=== PATIENT | male | born 1940 | race Caucasian/White ===

== ENCOUNTER → 2017-08-03 14:03 | Outpatient (POV) | payer MEDICARE, SELFPAY | PROVIDERS: Family Provider Internal Medicine; PCP Internal Medicine; Referring Provider Internal Medicine Clinical Cardiac Electrophysiology; Visit Provider Dermatology | DX: I48.1 Persistent atrial fibrillation (principal) | CPT/HCPCS: 93005 ==

== ENCOUNTER → 2017-10-27 14:01 | Outpatient (CLI) | payer MEDICARE, SELFPAY ==
--- NOTE | 2017-10-27 14:13 | CA_ITS ---
PROCEDURE: 2-D M-mode and color Doppler study INDICATIONS FOR THE TEST: Chest pain COPD Heart Murmur Tobacco Smoking Palpitations Fatigue Syncope Edema Hypertension Diabetes Mellitus+ Rheumatic Fever SOB DAVE Obesity Hyperlipidemia+ Family History HD Additional History ABLATION JUN 2017 PATIENT INFORMATION HEIGHT:78 WEIGHT:195 GENDER: Male B/P:120/70 2-D/M-MODE INTERPRETATION: 2-D MEASUREMENTS OBSERVED VALUES IN CMS Right Ventricular Dimension (RVDd) 2.9 Interventricular Septum (Thickness)(IVsd) 1.0 Left Ventricular Internal Dimensions(LVIDd) 5.6 Left Ventricular Posterior Wall (Thickness)(LVPWd) 1.1 Aortic Root 3.3 Aortic Cusp Separation 1.4 Left Atrial Dimensions (LAD) 4.2 2D 1. Left atrium is qualitatively moderately enlarged, left ventricle is normal size, visually estimated ejection fraction 50% no signal wall motion abnormality. 2. The right atrium is moderately enlarged, right ventricle is mildly dilated with normal contractility. 3. The aortic valve is minimally thickened and fibrosed. 4. The mitral and tricuspid valvular minimally thickened. 5. The pulmonic valve is poorly visualized 6. No significant pericardial effusion noted. DOPPLER INTERROGATION: Doppler interrogation of the aortic, mitral and tricuspid valvular presence of mild mitral and tricuspid regurgitation, calculated right ventricular systolic pressure is 47 mmHg consistent with moderate pulmonary hypertension, diastolic parameters are inconclusive. CONCLUSION: 1. Biatrial enlargement, normal left ventricular size, visually estimated ejection fraction 50% with no obvious regional wall motion abnormality, diastolic parameters are inconclusive. 2. Mildly enlarged right ventricle with normal contractility. 3. Mild mitral and tricuspid regurgitation, calculated right ventricular systolic pressure is 47 mmHg consistent with moderate pulmonary hypertension 4. No significant pericardial effusion noted.
== END ==
PROVIDERS: Family Provider Internal Medicine; PCP Internal Medicine; Visit Provider Internal Medicine Clinical Cardiac Electrophysiology
DX: I48.1 Persistent atrial fibrillation (principal); I42.9 Cardiomyopathy, unspecified
CPT/HCPCS: 93306

== ENCOUNTER → 2018-01-04 13:03 | Outpatient (POV) | payer MEDICARE, SELFPAY | PROVIDERS: Family Provider Internal Medicine; PCP Internal Medicine; Visit Provider Dermatology | DX: Z00.00 Encounter for general adult medical examination without abnormal findings (principal) ==

== ENCOUNTER → 2018-08-21 08:04 | Outpatient (POV) | payer MEDICARE, SELFPAY | PROVIDERS: Visit Provider Dermatology | DX: Z00.00 Encounter for general adult medical examination without abnormal findings (principal) ==

== ENCOUNTER → 2019-05-08 14:28 | Outpatient (CLI) | payer MEDICARE, SELFPAY ==
--- NOTE | 2019-05-08 14:35 | CT_ITS ---
PROCEDURE: CT ABDOMEN PELVIS WO CON CLINICAL HISTORY: RUQ PAIN,ABD PAIN,H/O MELANOMA Right flank pain COMPARISON: ABDPELW/O CT ABD PELVIS W/O CONTRAST from 04/02/2013 TECHNIQUE: Axial images obtained with sagittal and coronal reformats. All CT scans at the facility use one or more dose reduction, viz: automated exposure control, ma/kV adjustment per patient size (including targeted exams where dose is matched to indication, i.e. head), or iterative reconstruction technique. FINDINGS: Calcified granuloma is present in the right lung base. Bowel interposition is noted anterior to the right lobe of the liver. There is a small hiatal hernia. The liver, spleen, adrenal glands, and pancreas have an unremarkable appearance. There is an unusual lateral extension of the caudate lobe of the liver has a normal variant. No renal or ureteral calculi. No hydronephrosis. There is a 4.5 cm cyst along the superior pole of the right kidney. There is mild aneurysmal dilatation of the infrarenal abdominal aorta at 2.8 cm previously measuring 2.6 cm. There is a small umbilical hernia containing fat. The ascending colon is in the normal position. The cecum however is flipped and is in the right upper quadrant anterior to the right lobe of the liver. The ileocecal valve is also present in this region. No obvious inflammatory changes. No evidence of intestinal obstruction. There is diverticulosis of the sigmoid colon but no evidence of diverticulitis. Prostate is slightly enlarged at 5.5 cm. No acute bony anomalies are evident. IMPRESSION: 1. No acute abdominal or pelvic findings 2. No renal or ureteral calculi. There is a 4.5 cm right renal cyst 3. Mild dilatation of the infrarenal abdominal aorta at 2.8 cm 4. There is mild positioning of the cecum which is located in the right upper quadrant. No focal inflammatory change of struck [place] or other significant anomalies are evident. 5. Enlarged prostate Dictated by: Oh Parker MD 05/08/2019 15:48 Electronically signed by Oh Parker MD in [place] 05/08/2019 15:48
--- NOTE | 2019-05-08 14:38 | XR_ITS ---
PROCEDURE: XR CHEST 2V CLINICAL HISTORY: RT LATERAL LOWER CHEST PAIN COMPARISON: [facility] CT CHEST W/O CONTRAST from 04/02/2013 CXR CHEST(2 VIEWS-NOT PORTABLE) from 11/11/2016 CXR CHEST(2 VIEWS-NOT PORTABLE) from 12/12/2016 CXR CHEST(2 VIEWS-NOT PORTABLE) from 01/20/2017 FINDINGS: The cardiomediastinal silhouette and pulmonary vascularity are within normal limits. There is evidence of old granulomatous disease. No lobar consolidation or collapse. There is a calcified granuloma in the right lower lobe. Degenerative changes of the thoracic spine IMPRESSION: No acute findings. Dictated by: Oh Parker MD 05/08/2019 15:39 Electronically signed by Oh Parker MD in [facility] 05/08/2019 15:39
== END ==
PROVIDERS: PCP Internal Medicine; Visit Provider Internal Medicine
DX: R07.89 Other chest pain (principal); R10.11 Right upper quadrant pain; R10.9 Unspecified abdominal pain; Z85.820 Personal history of malignant melanoma of skin
CPT/HCPCS: 71046; 74176

== ENCOUNTER → 2019-07-09 09:56 | Outpatient (POV) | payer MEDICARE, SELFPAY | PROVIDERS: Visit Provider Dermatology | DX: Z00.00 Encounter for general adult medical examination without abnormal findings (principal) ==

== ENCOUNTER → 2019-12-04 14:50 | Outpatient (CLI) | payer MEDICARE, SELFPAY ==
--- NOTE | 2019-12-04 15:06 | ECG_ITS ---
APPROVED REPORT Exam: Resting ECG HR:140 bpm ECG Measurements Heart Rate 140 AXES QRSd 122 QRS 42 QT 324 T 19 QTc 494 <Conclusion> Atrial fibrillation with rapid ventricular response with premature ventricular or aberrantly conducted complexes Right bundle branch block NDST-T Changes Abnormal ECG Electronically signed by : Daren Bloom, 12/04/2019 16:17:41
== END ==
PROVIDERS: PCP Internal Medicine; Visit Provider Internal Medicine
DX: R42 Dizziness and giddiness (principal); I49.9 Cardiac arrhythmia, unspecified
CPT/HCPCS: 93005

== ENCOUNTER → 2020-04-07 13:03 | Outpatient (POV) | payer MEDICARE, SELFPAY | PROVIDERS: Visit Provider Dermatology | DX: Z00.00 Encounter for general adult medical examination without abnormal findings (principal) ==

== ENCOUNTER → 2020-04-21 14:25 | Outpatient (POV) | payer MEDICARE, SELFPAY | PROVIDERS: Visit Provider Dermatology | DX: Z00.00 Encounter for general adult medical examination without abnormal findings (principal) ==

== ENCOUNTER → 2020-05-04 10:56 | Outpatient (CLI) | payer MEDICARE, SELFPAY ==
--- NOTE | 2020-05-04 11:15 | ECG_ITS ---
APPROVED REPORT Exam: Resting ECG HR:127 bpm ECG Measurements Heart Rate 127 AXES QRSd 132 QRS 43 QT 388 T -31 QTc 563 Conclusion Atrial flutter with variable AV block with premature ventricular or aberrantly conducted complexes Right bundle branch block T wave abnormality, consider inferolateral ischemia Abnormal ECG Electronically signed by : Richie Bianchi, 05/05/2020 06:40:53
== END ==
PROVIDERS: PCP Internal Medicine; Visit Provider Physician Assistant
DX: I48.11 Longstanding persistent atrial fibrillation (principal)
CPT/HCPCS: 93005

== ENCOUNTER → 2020-06-11 11:09 | Outpatient (CLI) | payer MEDICARE, SELFPAY ==
--- NOTE | 2020-06-11 11:29 | ECG_ITS ---
APPROVED REPORT Exam: Resting ECG HR:80 bpm ECG Measurements Heart Rate 80 AXES AK 132 P 68 QRSd 122 QRS 28 QT 420 T -25 QTc 484 Conclusion Normal sinus rhythm Right bundle branch block T wave abnormality, consider inferolateral ischemia Abnormal ECG Electronically signed by : Richie Bianchi, 06/11/2020 17:41:19
== END ==
PROVIDERS: PCP Internal Medicine; Visit Provider Physician Assistant
DX: R94.31 Abnormal electrocardiogram [ECG] [EKG] (principal)
CPT/HCPCS: 93005

== ENCOUNTER 2020-09-13 14:18 | Emergency (ER) | payer MEDICARE, SELFPAY ==
[2020-09-13 14:27] VITALS: BP 138/74; PULSE 84; RESP 16; TEMP 36.8; O2SAT 98; BMI 22.5
--- NOTE | 2020-09-13 14:49 | XR_ITS ---
PROCEDURE: XR HIP RT 2-3V W/PELVIS CLINICAL INDICATION: fall COMPARISON: CT CT HIP RT WO CON from 09/13/2020 FINDINGS: Head and neck appear intact. There is a questionable discontinuity in the of the acetabulum medially. There is generalized osteopenia but a nondisplaced fracture is a possibility. The pubic bones appear intact. The left hip is intact. The SI joints and symphysis pubis appear normal. IMPRESSION: Generalized osteopenia questionable fracture versus focal osteopenia roof of the right acetabulum Dictated by: Dr. Jacek Huizar MD 09/13/2020 16:29 Dr. Jacek Huizar MD in [place] 09/13/2020 16:29
--- NOTE | 2020-09-13 14:49 | XR_ITS ---
PROCEDURE: XR ELBOW RT MIN 3V CLINICAL INDICATION: fall COMPARISON: No exams were available for comparison FINDINGS: No fracture or dislocation. No lytic or blastic change. There is mild generalized osteopenia.. The joint spaces are well-preserved. No significant degenerative/arthritic changes. No erosive changes evident. Other findings:None. IMPRESSION: No acute findings. Dictated by: Dr. Jacek Huizar MD 09/13/2020 17:01 Dr. Jacek Huizar MD in [place] 09/13/2020 17:01
--- NOTE | 2020-09-13 14:49 | XR_ITS ---
PROCEDURE: XR HAND RT MIN 3V CLINICAL INDICATION: fall COMPARISON: No exams were available for comparison FINDINGS: No fracture or dislocation. No lytic or blastic change. There is normal mineralization. There is minor narrowing of the DIP joints of all of the fingers. There is no significant soft tissue abnormality. 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 Jacek Huizar MD 09/13/2020 17:01 Dr. Jacek Huizar MD in [place] 09/13/2020 17:01
[2020-09-13 14:52] VITALS: BP 138/74; PULSE 84; RESP 16; TEMP 36.8; O2SAT 98; BMI 22.5
--- NOTE | 2020-09-13 15:29 | CT_ITS ---
PROCEDURE: CT HIP RT WO CON CLINICAL HISTORY: hip injury, right hip pain with weight-bearing COMPARISON: CT CT ABDOMEN PELVIS WO CON from 05/08/2019 TECHNIQUE: Axial images obtained with sagittal and coronal reformats. All CT scans at the facility use one or more dose reduction, viz: automated exposure control, ma/kV adjustment per patient size (including targeted exams where dose is matched to indication, i.e. head), or iterative reconstruction technique. FINDINGS: There is generalized osteopenia. The femoral head and neck appear intact. There are 2 separate linear nondisplaced fractures of the roof of the acetabulum 1 fracture somewhat medial the other lateral and both extend to involve the articular cortex of the hip joint. The trochanteric portion of the hip is intact and the proximal femur is intact. The right SI joint is normal IMPRESSION: Generalized osteopenia with 2 separate linear nondisplaced vertical fractures of the acetabular roof Dictated by: Dr. Jacek Huizar MD 09/13/2020 16:59 Dr. Jacek Huizar MD in [place] 09/13/2020 16:59
--- NOTE | 2020-09-13 15:31 | HMH.EDGENADL ---
ED Disposition Clinical Impression: Right acetabular fracture Qualifiers: Encounter type: initial encounter Sublocation of acetabulum: dome Fracture type: closed Fracture alignment: nondisplaced Qualified Code(s): S32.484A - Nondisplaced dome fracture of right acetabulum, initial encounter for closed fracture Contusion of right hand Qualifiers: Encounter type: initial encounter Qualified Code(s): S60.221A - Contusion of right hand, initial encounter Contusion of right elbow Qualifiers: Encounter type: initial encounter Qualified Code(s): S50.01XA - Contusion of right elbow, initial encounter Disposition: Home, Self-Care Condition on Discharge: Good Instructions: How to Prevent Falls, How to Use Crutches Additional Instructions: Crutches, nonweightbearing on right leg. [place] as needed for pain. See Dr. Henning in her office this week. Call tomorrow to make appointment. Additional instructions for CONTROLLED SUBSTANCES: You have been prescribed a medication that is a controlled substance. Controlled substances include pain medications known as opiates and sedative nerve medications known as benzodiazepines. Tramadol, fioricet, and gabapentin are also controlled substances. Some common opiates include: Codeine (such as Tylenol #3) Hydrocodone (Vicodin, Lortab, Lorcet, [place]) Oxycodone (Percocet, Percodan, Oxycodone, Oxy IR) Some common benzodiazepines include: Diazepam (Valium) Lorazepam (Ativan) Alprazolam (Xanax) Clonazepam (Klonopin) Oxazepam (Serax) All of these controlled substances are highly addictive and frequently abused. Misuse can and frequently does lead to addiction as well as overdose and . Medication should be stored in a locked cabinet or other secure storage unit. Do not store the medication in a motor vehicle. Short term supplies, 3 days or less, are prescribed because of the highly addictive nature of the medication. Any of the controlled substance medication NOT taken should be disposed of properly and NOT SAVED. The recommended method of disposing of unused medications is: Place the medicines in a sealable plastic bag. If the medicine is a solid, crush it or add water to dissolve it. Add something undesirable (cat litter, coffee grounds, etc.) Dispose of sealed bag in household trash Do not flush or pour unused medicines down a sink or drain. Controlled substances should not be shared, given away or sold. Because of the addictive nature and frequent abuse, these medications are sometimes stolen. These medications should be kept in a safe place where they cannot be stolen. Do not keep them in your car or purse. Lost or stolen prescriptions for controlled substances WILL NOT BE REFILLED in this emergency department, regardless of whether a police report was filed. Prescriptions: Hydrocod/Acet 5/325 mg [[place] 5/325mg tablet] 1 tab PO Q6HP PRN #12 tab PRN Reason: Pain Transmission Status: Sent to [facility] #[id number] Referrals: Carmen Henning MD [Physician] - (call tomorrow) - Critical Care Critical Care Time: No Attestation: On 09/13/20, the high probability of a clinically significant, sudden or life threatening deterioration of the following system(s) required my full and direct attention, intervention and personal management. The time I documented below is in addition to time spent performing reported procedures but includes the following listed in this critical care notation. Medical Decision Making - Jagdish Inquiry Pt receiving controlled substance: Yes Jagdish was queried for this patient: Yes Risks and benefits of using a controlled substance: were discussed with pt by me Vital Signs: 09/13/20 14:27 09/13/20 14:52 Temperature 98.3 F 98.3 F Temperature Source Oral Oral Pulse Rate [Right] 84 84 Respiratory Rate 16 16 Blood Pressure [Right Arm] 138/74 138/74 Blood Pressure Mean [Right Arm] 95 95 Blood Pressure Source [Right Arm]
--- NOTE | 2020-09-13 16:24 | PC.NURSE ---
DR GUEVARA SPEAKING WITH DR MORTON
[2020-09-13 16:41] VITALS: BP 132/70; PULSE 74; RESP 16; TEMP 36.8; O2SAT 98
== END 2020-09-13 17:00 | disposition home or self-care (01) ==
LOC: UTC 14:33 → ER 14:48
PROVIDERS: Emergency Provider Emergency Medicine; PCP Internal Medicine
DX: S32.484A Nondisplaced dome fracture of right acetabulum, initial encounter for closed fracture (principal); S60.221A Contusion of right hand, initial encounter; S50.01XA Contusion of right elbow, initial encounter; W00.0XXA Fall on same level due to ice and snow, initial encounter; Y92.014 Private driveway to single-family (private) house as the place of occurrence of the external cause; I48.91 Unspecified atrial fibrillation; E11.9 Type 2 diabetes mellitus without complications; I10 Essential (primary) hypertension; Z79.84 Long term (current) use of oral hypoglycemic drugs; Z79.899 Other long term (current) drug therapy
CPT/HCPCS: 73080; 73130; 73502; 73700; 99281

== ENCOUNTER → 2020-10-05 12:38 | Outpatient (CLI) | payer MEDICARE, SELFPAY ==
--- NOTE | 2020-10-05 12:49 | XR_ITS ---
PROCEDURE: XR HIP RT 2-3V W/PELVIS CLINICAL INDICATION: RT acetabulum FX FU Follow-up fracture COMPARISON: CT CT HIP RT WO CON from 09/13/2020 CR XR HIP RT 2-3V W/PELVIS from 09/13/2020 FINDINGS: Nondisplaced fracture of the acetabular roof noted. This is much better demonstrated on CT scan of 09/13/2020. There are mild osteoarthritic changes of the hip as well as faint calcification along the right femoral head laterally which is felt to represent chondrocalcinosis. IMPRESSION: No change nondisplaced right acetabular roof fracture with mild osteoarthritic change Dictated by: Oh Parker MD 10/05/2020 13:17 Oh Parker MD in [place] 10/05/2020 13:17
== END ==
PROVIDERS: PCP Internal Medicine; Visit Provider Orthopaedic Surgery
DX: S32.401A Unspecified fracture of right acetabulum, initial encounter for closed fracture (principal)
CPT/HCPCS: 73502

== ENCOUNTER → 2020-11-03 12:52 | Outpatient (POV) | payer MEDICARE, SELFPAY | PROVIDERS: Visit Provider Dermatology | DX: Z00.00 Encounter for general adult medical examination without abnormal findings (principal) ==

== ENCOUNTER → 2020-11-06 13:16 | Outpatient (CLI) | payer MEDICARE, SELFPAY ==
--- NOTE | 2020-11-06 13:23 | XR_ITS ---
PROCEDURE: XR HIP RT 2-3V W/PELVIS CLINICAL INDICATION: RT acetabular fracture Follow-up fracture COMPARISON: CT CT HIP RT WO CON from 09/13/2020 CR XR HIP RT 2-3V W/PELVIS from 10/05/2020 FINDINGS: There are mild osteoarthritic changes involving both hips. Faint lucencies are noted through the roof of the acetabulum consistent with known comminuted acetabular fracture as seen on previous CT scan of 09/13/2020 fractures do appear nondisplaced. No other significant anomalies are evident. IMPRESSION: No change nondisplaced acetabular fracture of the acetabular roof Dictated by: Oh Parker MD 11/06/2020 13:48 Oh Parker MD in [place] 11/06/2020 13:48
== END ==
PROVIDERS: PCP Internal Medicine; Visit Provider Orthopaedic Surgery
DX: S32.401A Unspecified fracture of right acetabulum, initial encounter for closed fracture (principal)
CPT/HCPCS: 73502

== ENCOUNTER → 2021-05-31 17:52 | Outpatient (CLI) | payer MEDICARE, SELFPAY ==
[2021-05-31 20:43] LABS: Chloride 101 mmol/L (98-107); Sodium 140 mmol/L (136-145)
[2021-05-31 20:45] LABS: Alanine Aminotransferase 20 U/L (12-78); Aspartate Amino Transferase 29 U/L (17-59); Blood Urea Nitrogen 12 mg/dl (9-20); Estimated Glomerular Filt Rate 93 ml/min (>60); GFR (African American) 112 ML/MIN (>60)
[2021-05-31 20:46] LABS: Albumin Level 4.2 g/dl (3.5-5.0); Albumin/Globulin Ratio 1.4 (1.1-1.8); Alkaline Phosphatase 61 U/L (38-126); Bilirubin,Total 0.7 mg/dl (0.2-1.3); Calcium 9.5 mg/dl (8.4-10.2); Carbon Dioxide 29 mmol/L (22.0-30.0); Chol/HDL Ratio 2.3 (1-3.5); Cholesterol 154 mg/dl (140-200); Globulin 3.1 g/dL (1.3-3.2); Glucose 87 mg/dl (74-100); HDL Cholesterol 66 mg/dl (40-60); Total Protein,Serum 7.3 g/dl (6.3-8.2); Triglycerides 69 mg/dl (30-150); VLDL Cholesterol 14 mg/dL (0-40)
[2021-05-31 20:55] LABS: Hemoglobin A1C 6.1 % (4.0-6.0)
[2021-05-31 20:57] LABS: Direct LDL Cholesterol 71.55 mg/dL (100-129)
== END ==
PROVIDERS: Visit Provider Internal Medicine
DX: E11.9 Type 2 diabetes mellitus without complications (principal); E78.5 Hyperlipidemia, unspecified; Z85.820 Personal history of malignant melanoma of skin; Z85.828 Personal history of other malignant neoplasm of skin; Z79.84 Long term (current) use of oral hypoglycemic drugs
CPT/HCPCS: 80053; 80061; 83036

== ENCOUNTER → 2021-10-12 14:11 | Outpatient (POV) | payer MEDICARE, SELFPAY | PROVIDERS: Visit Provider Dermatology | DX: Z00.00 Encounter for general adult medical examination without abnormal findings (principal) ==

== ENCOUNTER → 2021-11-29 13:32 | Outpatient (CLI) | payer MEDICARE, SELFPAY ==
[2021-11-29 14:04] LABS: Basophils # 0.1 K/mm3 (0-0.2); Basophils % 0.8 % (0.1-2.0); Eosinophils # 0.2 K/mm3 (0.0-0.4); Eosinophils % 2.7 % (0.1-12.0); Hematocrit 39.8 % (42.0-52.0); Hemoglobin 12.9 g/dL (14.1-18.0); Lymphocytes % 27.5 % (10-50); Mean Corpuscular HGB Conc 32.5 g/dL (31.8-35.4); Mean Corpuscular Hemoglobin 31.2 pg (27.0-31.2); Mean Platelet Volume 9.2 fl (7.4-10.4); Monocytes # 0.7 K/mm3 (0.1-1.0); Monocytes % 9.4 % (1.7-9.3); Neutrophils # 4.3 K/mm3 (1.8-7.8); Neutrophils % 59.7 % (37.0-80.0); Platelet Count 312 K/mm3 (142-424); Red Blood Count 4.15 M/mm3 (4.60-6.20); Red Cell Distribution Width 13.4 % (11.5-17.5); White Blood Count 7.1 K/mm3 (4.8-10.8)
[2021-11-29 14:32] LABS: Alanine Aminotransferase 24 U/L (12-78); Albumin Level 4.2 g/dl (3.5-5.0); Albumin/Globulin Ratio 1.2 (1.1-1.8); Alkaline Phosphatase 55 U/L (38-126); Anion Gap 8.3 mEq/L (5-15); Aspartate Amino Transferase 31 U/L (17-59); Bilirubin,Total 0.7 mg/dl (0.2-1.3); Blood Urea Nitrogen 21 mg/dl (9-20); Calcium 9.4 mg/dl (8.4-10.2); Carbon Dioxide 29 mmol/L (22.0-30.0); Chloride 102 mmol/L (98-107); Chol/HDL Ratio 2.6 (1-3.5); Cholesterol 150 mg/dl (140-200); Estimated Glomerular Filt Rate 81 ml/min (>60); GFR (African American) 98 ML/MIN (>60); Globulin 3.4 g/dL (1.3-3.2); Glucose 104 mg/dl (74-100); HDL Cholesterol 58 mg/dl (40-60); Potassium 4.3 mmoL/L (3.5-5.1); Sodium 135 mmol/L (136-145); Total Protein,Serum 7.6 g/dl (6.3-8.2); Triglycerides 54 mg/dl (30-150); VLDL Cholesterol 11 mg/dL (0-40)
[2021-11-29 14:43] LABS: Direct LDL Cholesterol 61.53 mg/dL (100-129)
[2021-11-29 14:47] LABS: Hemoglobin A1C 6.4 % (4.0-6.0)
[2021-11-29 15:02] LABS: Prostate Specific Ag Screen 0.9 ng/ml (0.0-4.0)
== END ==
PROVIDERS: PCP Internal Medicine; Visit Provider Internal Medicine
DX: I48.0 Paroxysmal atrial fibrillation (principal); E11.9 Type 2 diabetes mellitus without complications; E78.5 Hyperlipidemia, unspecified; N40.1 Benign prostatic hyperplasia with lower urinary tract symptoms; Z12.5 Encounter for screening for malignant neoplasm of prostate; Z79.84 Long term (current) use of oral hypoglycemic drugs
CPT/HCPCS: 80053; 80061; 83036; 85025; G0103

== ENCOUNTER 2022-02-28 15:20 | Observation (INO) | payer MEDICARE, SELFPAY ==
[2022-02-28] VITALS (14 sets, daily range): BP systolic 127–153; BP diastolic 69–89; PULSE 75–83; RESP 16–18; TEMP 36.6–36.7; O2SAT 95–98; BMI 21.4; BMI 20.3
--- NOTE | 2022-02-28 15:28 | CT_ITS ---
FINAL REPORT CLINICAL HISTORY: FALL FINDINGS: Axial images of the head were obtained without contrast. Coronal reformatted images were also obtained. This study was performed with techniques to keep radiation doses as low as reasonably achievable (ALARA). Individualized dose reduction techniques using automated exposure control or adjustment of mA and/or kV according to the patient's size were employed. There is generalized age-appropriate atrophy. Periventricular low-attenuation areas are seen consistent with mild chronic ischemic changes. There is no evidence of intracranial hemorrhage or mass. There is no evidence of acute infarct. There is no evidence of shift of the midline structures. No skull abnormality is seen on the bone window images. IMPRESSION: Atrophy and mild periventricular chronic ischemic changes. No acute intracranial abnormality identified. Reviewed, Interpreted and Dictated by Ned Reddy III, MD Transcribed by Philip Bliss Authenticated and [facility]
--- NOTE | 2022-02-28 15:28 | CT_ITS ---
FINAL REPORT CLINICAL HISTORY: FALL FINDINGS: Axial CT images of the cervical spine were obtained without contrast. Sagittal and coronal reformatted images were also obtained. This study was performed with techniques to keep radiation doses as low as reasonably achievable (ALARA). Individualized dose reduction techniques using automated exposure control or adjustment of mA and/or kV according to the patient's size were employed. There is no evidence of fracture or dislocation. The bony alignment is normal. There are mild and moderate degenerative changes. There is multilevel neural foraminal narrowing. There is no evidence of canal stenosis. No paraspinous soft tissue abnormality is seen. Limited images of the upper thorax are unremarkable. IMPRESSION: No fracture or acute bony abnormality identified. Reviewed, Interpreted and Dictated by Ned Reddy III, MD Transcribed by Philip Bliss Authenticated and [facility]
--- NOTE | 2022-02-28 15:28 | XR_ITS ---
PROCEDURE INFORMATION: Exam: XR Chest Exam date and time: 02/28/2022 4:20 PM Age: 81 years old Clinical indication: Chest wall pain; Additional info: Fall TECHNIQUE: Imaging protocol: Radiologic exam of the chest. Views: 1 view. COMPARISON: CR XR CHEST 2V 05/08/2019 2:53 PM FINDINGS: Airway: The airways are patent. Lungs: 13 mm calcified granuloma in the right lung base is stable. Low lung volumes causes crowding of the bronchovascular structures. Basal predominant interstitial prominence. Remainder of the lungs are clear. Pleural spaces: No pleural effusions or pneumothorax. Heart/Mediastinum: Heart is of normal size and morphology. Vasculature: Calcified aortic knob. Bones/joints: No acute skeletal abnormality or aggressive osseous lesion. IMPRESSION: Stable examination without acute thoracic pathology grossly noted.
--- NOTE | 2022-02-28 15:28 | CT_ITS ---
FINAL REPORT TECHNIQUE: Axial imaging of the lumbar spine was obtained without contrast. Sagittal and coronal reformatted images were also obtained and reviewed. This study was performed with techniques to keep radiation doses as low as reasonably achievable (ALARA). Individualized dose reduction techniques using automated exposure control or adjustment of mA and/or kV according to the patient''s size were employed. CLINICAL HISTORY: FALL FINDINGS: There is a nondisplaced horizontal fracture of the T12 vertebral body that appears acute. There is a fracture of the right T12 lamina. The vertebral alignment is normal. There are mild degenerative changes. There are multiple bulges and osteophytes.There is no evidence of significant central canal stenosis. There is ectasia of the abdominal aorta with a focal saccular aneurysm on the left measuring 1.5 cm. 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 IMPRESSION: T12 vertebral body fracture appears acute. Fracture of the right T12 lamina. 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 Recommend CTA for further evaluation. Reviewed, Interpreted and Dictated by Ned Reddy III, MD Transcribed by Philip Bliss Authenticated and [facility]
--- NOTE | 2022-02-28 15:28 | XR_ITS ---
FINAL REPORT CLINICAL HISTORY: FALL FINDINGS: AP PELVIS: A single view of the pelvis was obtained. There is no acute fracture or dislocation. There are mild degenerative changes involving both hips. Soft tissues are unremarkable. IMPRESSION: No acute process. Reviewed, Interpreted and Dictated by Ned Reddy III, MD Transcribed by Philip Bliss Authenticated and [facility]
--- NOTE | 2022-02-28 15:45 | PC.NURSE ---
RADIOLOGY AWARE OF ORDERS
--- NOTE | 2022-02-28 16:12 | PC.NURSE ---
pt in CT
--- NOTE | 2022-02-28 16:36 | HMH.EDGENADL ---
ED Disposition Condition on Discharge: Fair - Critical Care Critical Care Time: No <LizethAlbert - Last Filed: 02/28/22 18:31> Condition on Discharge: Fair Time of Disposition: 19:31 - Critical Care Critical Care Time: No <Patricia Clark - Last Filed: 02/28/22 20:47> Clinical Impression: Uncontrolled pain T12 vertebral fracture Qualifiers: Encounter type: initial encounter Fracture type: closed Fracture morphology: unspecified fracture morphology Qualified Code(s): S22.089A - Unspecified fracture of T11-T12 vertebra, initial encounter for closed fracture Disposition: Admitted as Observation Attestation: On 02/28/22, the high probability of a clinically significant, sudden or life threatening deterioration of the following system(s) required my full and direct attention, intervention and personal management. The time I documented below is in addition to time spent performing reported procedures but includes the following listed in this critical care notation. Medical Decision Making - Jagdish Inquiry Pt receiving controlled substance: Yes Jagdish was queried for this patient: Yes Risks and benefits of using a controlled substance: were not discussed with pt by me - Lab Data Result diagrams: 02/28/22 16:54 02/28/22 16:54 <Albert Stanley - Last Filed: 02/28/22 18:31> - Lab Data Result diagrams: 02/28/22 16:54 02/28/22 16:54 <Patricia Clark - Last Filed: 02/28/22 20:47> Vital Signs: 02/28/22 15:21 02/28/22 16:30 02/28/22 17:00 Temperature 98 F Temperature Source Oral Pulse Rate 77 78 Pulse Rate [Right Radial] 77 Respiratory Rate 16 18 18 Blood Pressure 142/83 H 140/86 Blood Pressure [Right Arm] 143/85 H Blood Pressure Mean 101 97 Blood Pressure Mean [Right Arm] 104 Blood Pressure Source [Right Arm] Automatic Cuff Blood Pressure Position [Right Arm] Sitting 02 Sat by Pulse Oximetry 98 98 98 Oxygen Delivery Method Room Air 02/28/22 17:47 02/28/22 18:28 Temperature Temperature Source Pulse Rate 75 77 Pulse Rate [Right Radial] Respiratory Rate 18 18 Blood Pressure 137/83 137/83 Blood Pressure [Right Arm] Blood Pressure Mean 97 Blood Pressure Mean [Right Arm] Blood Pressure Source [Right Arm] Blood Pressure Position [Right Arm] 02 Sat by Pulse Oximetry 96 97 Oxygen Delivery Method - Lab Data Lab Results 02/28/22 16:54: WBC 10.2, RBC 4.37 L, Hgb 13.2 L, Hct 42.4, MCV 96.9 H, MCH 30.2, MCHC 31.2 L, RDW 13.1, Plt Count 224, MPV 7.9, Neut % (Auto) 77.8, Lymph % (Auto) 13.9, [place] % (Auto) 6.6, Eos % (Auto) 1.2, Baso % (Auto) 0.4, Neut # (Auto) 7.9 H, Lymph # (Auto) 1.4, Vernon # (Auto) 0.7, Eos # (Auto) 0.1, Baso # (Auto) 0.0 02/28/22 16:54: Sodium 136, Potassium 4.2, Chloride 104, Carbon Dioxide 28, Anion Gap 8.2, BUN 19, Creatinine 0.80, Estimated Creat Clear 68, Estimated GFR 92, Est GFR ( Amer) 112, Glucose 111 H, Calcium 9.3 02/28/22 19:48: SARS-CoV-2 (PCR) Not detected, Influenza A Untype (PCR) Not detected, Influenza Type B (PCR) Not detected Orders (Tests/Meds): ED MEDICATIONS Generic Name Dose Route Start Last Admin Trade Name Freq PRN Reason Stop Dose Admin Sodium Chloride 10 ml 02/28/22 16:42 Sodium Chloride 0.9% 10ml Flush Syringe IV 03/30/22 16:41 NEEDED PRN Maintain IV Site Discontinued Medications Generic Name Dose Route Start Last Admin Trade Name Freq PRN Reason Stop Dose Admin Hydromorphone HCl 0.5 mg 02/28/22 18:41 02/28/22 18:41 Hydromorphone 2mg/Ml Syringe IV 02/28/22 18:42 0.5 mg ONCE ONE Administration Hydromorphone HCl 0.5 mg 02/28/22 18:44 02/28/22 18:09 Hydromorphone 2mg/Ml Syringe IV 02/28/22 18:45 0.5 mg ONCE ONE Administration Hydromorphone HCl 0.5 mg 02/28/22 19:03 02/28/22 19:04 Hydromorphone 2mg/Ml Syringe IV 02/28/22 19:04 0.5 mg ONCE ONE Administration Iopamidol 75 ml 02/28/22 17:43 02/28/22 17:44 Iopamidol-370 (76%);100ml Bottle IV
--- NOTE | 2022-02-28 16:44 | CT_ITS ---
PROCEDURE INFORMATION: Exam: CT Thoracic Spine Without Contrast Exam date and time: 02/28/2022 5:30 PM Age: 81 years old Clinical indication: Injury or trauma; Fall; Blunt trauma (contusions or hematomas); Additional info: Fall down stairs TECHNIQUE: Imaging protocol: Computed tomography of the thoracic spine without contrast. Radiation optimization: All CT scans at this facility use at least one of these dose optimization techniques: automated exposure control; mA and/or kV adjustment per patient size (includes targeted exams where dose is matched to clinical indication); or iterative reconstruction. COMPARISON: CT LUMBAR SPINE WO CON 02/28/2022 3:59 PM FINDINGS: Bones/joints: Redemonstration of a comminuted horizontal fracture of the T12 vertebral body. There is minimal retropulsion of fracture fragments of 3 mm, not causing any significant central canal stenosis, however mildly indenting upon the thecal sac. There is no significant loss in vertebral body height. Redemonstration of a linear fracture to the right lamina of T12 with minimal displacement. No other acute fracture, dislocation, or aggressive osseous lesion. Moderate multilevel degenerative changes of the thoracic spine are present. Spinal canal remains patent. No significant bony neural foraminal stenosis. Discs/Spinal canal/Neural foramina: See Bones/joints finding. Soft tissues: Prevertebral soft tissue swelling at T12. No other acute soft tissue findings. IMPRESSION: 1. Redemonstration of a comminuted horizontal fracture through T12 without significant loss in vertebral body height. 2. Redemonstration of a linear fracture through the right lamina of T12. 3. No other acute skeletal pathology. COMMENTS: Please review chest CT performed concomitantly for other important findings.
--- NOTE | 2022-02-28 16:51 | CT_ITS ---
PROCEDURE INFORMATION: Exam: CT Abdomen And Pelvis With Contrast Exam date and time: 02/28/2022 5:33 PM Age: 81 years old Clinical indication: Injury or trauma; Fall; Blunt; Generalized; Additional info: Fall down stairs TECHNIQUE: Imaging protocol: Computed tomography of the abdomen and pelvis with contrast. Radiation optimization: All CT scans at this facility use at least one of these dose optimization techniques: automated exposure control; mA and/or kV adjustment per patient size (includes targeted exams where dose is matched to clinical indication); or iterative reconstruction. Contrast material: ISOVUE; Contrast volume: 75 ml; Contrast route: IV; COMPARISON: CT ABDOMEN PELVIS WO CON 05/08/2019 2:46 PM FINDINGS: Diaphragm: A small hiatal hernia is present. Liver: There is enlargement of the liver, measuring 18 cm. There is a diffuse decrease in hepatic parenchymal density, consistent with fatty infiltration. The liver demonstrates punctate calcifications, consistent with remote granulomatous organism exposure. The liver is otherwise unremarkable. Gallbladder and bile ducts: Prior cholecystectomy. There is no evidence of biliary ductal dilation. Pancreas: There is diffuse atrophy of the pancreatic parenchyma. There is diffuse, benign fatty infiltration of the pancreas. There are punctate pancreatic parenchymal calcifications, consistent with chronic pancreatitis. The pancreas is otherwise unremarkable. Spleen: The spleen demonstrates punctate calcifications, consistent with remote granulomatous organism exposure. The spleen is otherwise unremarkable. Adrenal glands: The adrenal glands are normal. Kidneys and ureters: There is a simple cyst in the right kidney measuring 48 mm. The kidneys are otherwise unremarkable. The ureters are normal. Stomach and bowel: No bowel wall thickening, obstruction, or other acute pathology. Diffuse colonic diverticulosis is present. There is moderately excessive colonic stool content. Appendix: Appendix is not confidently visualized on this examination, however there are no significant inflammatory changes to the right lower quadrant. Intraperitoneal space: No free fluid, fluid collections, or pneumoperitoneum. 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 The arterial vasculature demonstrates diffuse moderate atherosclerotic calcification. No acute vascular pathology. 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 Lymph nodes: There is no evidence of lymphadenopathy. Urinary bladder: Urinary bladder is unremarkable. Reproductive: The prostate demonstrates moderate nonspecific enlargement. The seminal vesicles are normal. The prostate demonstrates nonspecific parenchymal calcifications. Bones/joints: Redemonstration of a comminuted transverse fracture of T12. Redemonstration of a linear fracture to the T12 right lamina. No other acutely displaced skeletal fractures are identified. There is no evidence of joint dislocation. Moderate multilevel degenerative changes of the spine. Soft tissues: There is a fat-containing umbilical hernia. Calcified injection granulomas are noted in the subcutaneous tissues of the buttocks. IMPRESSION: 1. Redemonstration of a comminuted transverse fracture of T12 and a linear fracture to the T12 right lamina. 2. No other acute posttraumatic abdominopelvic injury. 3. Incidental findings as above. 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 COMMENTS: 1. Please review chest CT performed concomitantly for
--- NOTE | 2022-02-28 16:51 | CT_ITS ---
PROCEDURE INFORMATION: Exam: CT Chest With Contrast; Diagnostic Exam date and time: 02/28/2022 5:33 PM Age: 81 years old Clinical indication: Injury or trauma; Fall; Blunt trauma (contusions or hematomas); Additional info: Fall down stairs TECHNIQUE: Imaging protocol: Diagnostic computed tomography of the chest with contrast. Radiation optimization: All CT scans at this facility use at least one of these dose optimization techniques: automated exposure control; mA and/or kV adjustment per patient size (includes targeted exams where dose is matched to clinical indication); or iterative reconstruction. Contrast material: ISOVUE; Contrast volume: 70 ml; Contrast route: IV; COMPARISON: CR XR CHEST PORTABLE 02/28/2022 4:20 PM FINDINGS: Thyroid: Normal thyroid. Trachea: The airways are patent. Lungs: Chronic reticular interstitial scarring throughout the lung periphery. Calcified granuloma in the right lower lobe is of no clinical concern. Mild apical paraseptal emphysema. No acute interstitial or airspace disease. There are no pulmonary nodules. Mild diffuse cylindrical bronchiectasis. Pleural spaces: No pleural effusions or pneumothorax. Heart: The heart demonstrates mild diffuse enlargement. There is calcification of the aortic valve annulus. There is mild atherosclerotic calcification of the coronary arteries. No pericardial thickening or effusion. Mediastinal space: The mediastinal contour is normal. Calcified hilar granulomas are of no concern. Lymph nodes: There is no evidence of lymphadenopathy. Vasculature: There is ectasia of the mid ascending thoracic aorta measuring 38 mm. The aorta demonstrates mild atherosclerotic calcification. No acute pathology in the aorta. Pulmonary arteries normal in course and caliber. No pulmonary emboli. Diaphragm: A small hiatal hernia is present. Bones/joints: Old/healed fracture to the distal left clavicle. Comminuted transverse fracture through the T12 vertebral body without significant loss in vertebral body height. No other acutely displaced skeletal fractures are identified. There is no evidence of joint dislocation. Moderate multilevel degenerative changes of the thoracic spine. Soft tissues: No acute body wall soft tissue findings. Other findings: Prevertebral soft tissue swelling at T12. IMPRESSION: 1. Comminuted transverse fracture through the T12 vertebral body without significant loss in vertebral body height. 2. No other acute posttraumatic thoracic injury. 3. Incidental findings as above.
[2022-02-28 17:05] LABS: Basophils % 0.4 % (0.1-2.0); Eosinophils # 0.1 K/mm3 (0.0-0.4); Eosinophils % 1.2 % (0.1-12.0); Hematocrit 42.4 % (42.0-52.0); Hemoglobin 13.2 g/dL (14.1-18.0); Lymphocytes # 1.4 K/mm3 (0.7-4.5); Lymphocytes % 13.9 % (10-50); Mean Corpuscular HGB Conc 31.2 g/dL (31.8-35.4); Mean Corpuscular Hemoglobin 30.2 pg (27.0-31.2); Mean Corpuscular Volume 96.9 fl (80-94); Mean Platelet Volume 7.9 fl (7.4-10.4); Monocytes # 0.7 K/mm3 (0.1-1.0); Monocytes % 6.6 % (1.7-9.3); Neutrophils # 7.9 K/mm3 (1.8-7.8); Neutrophils % 77.8 % (37.0-80.0); Platelet Count 224 K/mm3 (142-424); Red Blood Count 4.37 M/mm3 (4.60-6.20); Red Cell Distribution Width 13.1 % (11.5-17.5); White Blood Count 10.2 K/mm3 (4.8-10.8)
--- NOTE | 2022-02-28 17:07 | PC.NURSE ---
notified lab of added on bmp
--- NOTE | 2022-02-28 17:07 | PC.NURSE ---
rad aware of ct orders, states they are awaiting kidney function results for contrast.
[2022-02-28 17:19] LABS: Anion Gap 8.2 mEq/L (5-15); Blood Urea Nitrogen 19 mg/dl (9-20); Calcium 9.3 mg/dl (8.4-10.2); Carbon Dioxide 28 mmol/L (22.0-30.0); Chloride 104 mmol/L (98-107); Creatinine Clearance Estimated 68 mL/min (50-200); Estimated Glomerular Filt Rate 92 ml/min (>60); GFR (African American) 112 ML/MIN (>60); Glucose 111 mg/dl (74-100); Potassium 4.2 mmoL/L (3.5-5.1); Sodium 136 mmol/L (136-145)
--- NOTE | 2022-02-28 17:25 | PC.NURSE ---
notified rad pt lab work is resulted, spoke with florentino
--- NOTE | 2022-02-28 17:45 | PC.NURSE ---
PT BACK FROM RADIOLOGY
--- NOTE | 2022-02-28 19:14 | PC.NURSE ---
PC to [facility], Dr. Herrera being paged for ED doctor Kayla Yoder
--- NOTE | 2022-02-28 19:27 | PC.NURSE ---
Per [facility] they will call pt for follow up for ortho. Faxed face-sheet to [phone]
--- NOTE | 2022-02-28 19:27 | PC.NURSE ---
Dr. Yoder on phone with [facility]
[2022-02-28 19:50] LABS: Coronavirus 19, PCR Not Detected (NotDetected); Influenza A, PCR Not Detected (NotDetected); Influenza B, PCR Not Detected (NotDetected)
--- NOTE | 2022-02-28 20:15 | PC.NURSE ---
Pt given crackers for snack per request
--- NOTE | 2022-02-28 20:47 | XR_ITS ---
PROCEDURE INFORMATION: Exam: XR Thoracic Spine Exam date and time: 02/28/2022 8:46 PM Age: 81 years old Clinical indication: Injury or trauma; Fall; Blunt trauma (contusions or hematomas); Additional info: T12 fracture TECHNIQUE: Imaging protocol: Radiologic exam of the thoracic spine. Views: 2 views. COMPARISON: CT THORACIC SPINE WO CON 02/28/2022 5:30 PM FINDINGS: Bones/joints: Known T12 fracture is partially obscured by superimposition of soft tissues. Moderate multilevel degenerative changes of the spine are again appreciated. No other acute fracture, dislocation, or aggressive osseous lesion. Spinal canal remains patent. Soft tissues: No acute soft tissue findings. Lungs: No acute findings in the visualized chest. Calcified granuloma in the right lower lobe is stable and of no clinical concern. Intraperitoneal space: Prior cholecystectomy. IMPRESSION: 1. Known T12 fracture is obscured by superimposition of soft tissues. Please review thoracic spine CT performed concomitantly. 2. No other acute findings.
--- NOTE | 2022-02-28 21:25 | PC.NURSE ---
pt arrived to the floor via stretcher at this time
[2022-03-01 04:00] VITALS: BP 108/65; PULSE 71; RESP 18; TEMP 36.6; O2SAT 95
--- NOTE | 2022-03-01 05:02 | PC.NURSE ---
Pt a + o x4. Pt has c/o mid back pain 2x t/o shift. PRN pain medication administered per SEP. No other complaints voiced to staff. Pt able to stand at bedside with 2x assist to use urinal. Home medications locked in med drawer. Call light within reach.
[2022-03-01 05:08] VITALS: BMI 20.3
[2022-03-01 06:35] LABS: Basophils % 0.4 % (0.1-2.0); Eosinophils # 0.2 K/mm3 (0.0-0.4); Eosinophils % 2.1 % (0.1-12.0); Hematocrit 40.1 % (42.0-52.0); Hemoglobin 12.6 g/dL (14.1-18.0); Lymphocytes # 1.4 K/mm3 (0.7-4.5); Lymphocytes % 15.9 % (10-50); Mean Corpuscular HGB Conc 31.3 g/dL (31.8-35.4); Mean Corpuscular Volume 95.9 fl (80-94); Mean Platelet Volume 8.2 fl (7.4-10.4); Monocytes # 0.8 K/mm3 (0.1-1.0); Monocytes % 8.8 % (1.7-9.3); Neutrophils # 6.6 K/mm3 (1.8-7.8); Neutrophils % 72.7 % (37.0-80.0); Platelet Count 199 K/mm3 (142-424); Red Blood Count 4.19 M/mm3 (4.60-6.20); Red Cell Distribution Width 13.3 % (11.5-17.5); White Blood Count 9.1 K/mm3 (4.8-10.8)
[2022-03-01 06:40] LABS: Chloride 102 mmol/L (98-107); Sodium 136 mmol/L (136-145)
[2022-03-01 06:41] LABS: Potassium 4.3 mmoL/L (3.5-5.1)
[2022-03-01 06:43] LABS: Blood Urea Nitrogen 16 mg/dl (9-20); Creatinine Clearance Estimated 63 mL/min (50-200); Estimated Glomerular Filt Rate 92 ml/min (>60); GFR (African American) 112 ML/MIN (>60)
[2022-03-01 06:44] LABS: Anion Gap 8.3 mEq/L (5-15); Calcium 9.4 mg/dl (8.4-10.2); Carbon Dioxide 30 mmol/L (22.0-30.0); Glucose 149 mg/dl (74-100)
[2022-03-01 08:00] VITALS: BP 104/67; PULSE 73; RESP 20; TEMP 36.6; O2SAT 94; O2SAT 98
--- NOTE | 2022-03-01 10:10 | HMH.HPDC ---
General - General Admission date:: 02/28/22 Discharge date: 03/01/22 *Admission Date: 03/01/22 *Chief complaint: Fall *History of present illness: Patient states he fell down a flight of stairs on his back. His foot slipped and he landed flat on his back sliding down the stairs. Says that he did hit the back of his head, but no loss of consciousness. Denies neck pain. Complains of pain across his lumbar area diffusely. States initially he was not able to get up, but eventually was able to get up and ambulate out to the ground-level access to the basement into a car to be driven to the emergency room. Denies numbness or weakness of the extremities. No anterior chest, face, or abdominal injury. His pain is constant and is currently 7/10 in his lower back. He is on Eliquis due to atrial fibrillation. [facility] History I have reviewed the patient's past medical history: Yes Medical History: Reports:: Arrhythmia, Atrial Fibrillation, Cancer, Diabetes Mellitus Type 2, Hypertension *Have you ever received a pneumonia vaccine?: Yes *Have you received a flu vaccine this season?: Yes Laterality Cases: Bilateral: Tonsillectomy Other Surgeries: Yes: Appendectomy, Cardiac Surgery, Cholecystectomy, Colonoscopy, Hernia Repair, Other - *Social History Smoking Status: Never smoker Alcohol Intake: former Alcohol Intake Frequency:: holidays/special occasions only *Occupational Status:: retired Household Members: spouse *Travel in the last 8 weeks: None Family Hx:: Stroke Review of Systems - Review of Systems Review of systems:: pertinent systems reviewed and negative unless documented below - Constitutional Denies fatigue, Denies headache(s) - Eyes Denies blurry vision, Denies double vision - ENT Denies difficulty swallowing, Denies facial pain - *Cardiovascular Denies chest pain, Denies chest pain at rest, Denies shortness of breath - *Respiratory Denies chest congestion, Denies cough, Denies shortness of breath - *Gastrointestinal Denies abdominal pain, Denies change in stools - *Musculoskeletal Reports back pain, Denies decreased muscle mass, Denies muscle cramps - Integumentary/Breasts Denies change in skin color, Denies yellowing of the skin, Denies new lesions - *Neurologic Denies abnormal walking, Denies abnormal speech, Denies behavioral changes, Denies numbness, Denies weakness - Psychiatric Reports hearing things others do not hear, Denies anxiety, Denies confusion, Denies memory loss - Endocrine Denies cold intolerance, Denies rapid, pounding, or irregular heartbeat - Hematologic/Lymphatic Denies easy bleeding, Denies easy bruising Exam Vital signs and Labs for Last 24 Hours: Temp Pulse Resp BP Pulse Ox 97.8 F 73 20 104/67 L 94 L 03/01/22 08:00 03/01/22 08:00 03/01/22 08:00 03/01/22 08:00 03/01/22 08:00 Laboratory Results - last 24 hr 02/28/22 16:54: WBC 10.2, RBC 4.37 L, Hgb 13.2 L, Hct 42.4, MCV 96.9 H, MCH 30.2, MCHC 31.2 L, RDW 13.1, Plt Count 224, MPV 7.9, Neut % (Auto) 77.8, Lymph % (Auto) 13.9, [place] % (Auto) 6.6, Eos % (Auto) 1.2, Baso % (Auto) 0.4, Neut # (Auto) 7.9 H, Lymph # (Auto) 1.4, [place] # (Auto) 0.7, Eos # (Auto) 0.1, Baso # (Auto) 0.0 02/28/22 16:54: Sodium 136, Potassium 4.2, Chloride 104, Carbon Dioxide 28, Anion Gap 8.2, BUN 19, Creatinine 0.80, Estimated Creat Clear 68, Estimated GFR 92, Est GFR ( Amer) 112, Glucose 111 H, Calcium 9.3 02/28/22 19:48: SARS-CoV-2 (PCR) Not detected, Influenza A Untype (PCR) Not detected, Influenza Type B (PCR) Not detected 03/01/22 06:02: WBC 9.1, RBC 4.19 L, Hgb 12.6 L, Hct 40.1 L, MCV 95.9 H, MCH 30.0, MCHC 31.3 L, RDW 13.3, Plt Count 199, MPV 8.2, Neut % (Auto) 72.7, Lymph % (Auto) 15.9, [place] % (Auto) 8.8, Eos % (Auto) 2.1, Baso % (Auto) 0.4, Neut # (Auto) 6.6, Lymph # (Auto) 1.4, [place] # (Auto) 0.8, Eos # (Auto) 0.2, Baso # (Auto) 0.0 03/01/22 06:02: Sodium 136, Potassium 4.3, Chloride 102, Carbon Dioxide 30, Anion Gap 8.3, BUN 16, C
--- NOTE | 2022-03-01 10:23 | P.CONPHA_ITS ---
[facility] Pharmacy VTE Monitoring - Patient Demographics Admission date: 02/28/22 Report Date: 03/01/22 Time: 10:23 Allergies/Adverse Reactions: Patient Allergies No Known Allergies Allergy (Verified 09/08/21 14:30) Height: 1.98 m Weight: 79.889 kg Patient Problems: Current Active Problems T12 vertebral fracture (Acute) Uncontrolled pain (Acute) - VTE Risk Labs: VTE Related Lab Results Hgb 12.6 g/dL (14.1-18.0) L 03/01/22 06:02 Hct 40.1 % (42.0-52.0) L 03/01/22 06:02 Plt Count 199 K/mm3 (142-424) 03/01/22 06:02 BUN 16 mg/dl (9-20) 03/01/22 06:02 Creatinine 0.80 mg/dl (0.66-1.25) 03/01/22 06:02 Estimated Creat Clear 63 mL/min (50-200) 03/01/22 06:02 - Prophylaxis VTE Prophylaxis Ordered?: Yes Types of VTE Prophylaxis: TEDS Knee High Location of Applied Device: Bilateral Lower Extremeties
--- NOTE | 2022-03-01 10:47 | HMH.PHAINT ---
MEDICATION RECONCILIATION COMPLETE USING EXTERNAL PHARMACY FILL HISTORY.
--- NOTE | 2022-03-01 13:53 | HMH.PHAINT ---
DISCHARGE MEDICATION COUNSELING PROVIDED. DISCUSSED THE SHORT-COURSE NORCO AND HOW TO TAKE (Q4HP, ONLY TAKE IF YOU NEED IT FOR PAIN), MAY CAUSE UPSET STOMACH, SEDATION, DECREASED RESPIRATIONS, CONSTIPATION (RECOMMEND STOOL SOFTENER DOCUSATE OR MIRALAX). PATIENT VERBALIZED UNDERSTANDING AND HAD NO QUESTIONS AT THIS TIME.
--- NOTE | 2022-03-02 13:03 | CARE MANAGER ---
Contacted patient related to follow up from hospital discharge. Patient states that someone is to be making him an appointment with mission support specialist but he is not sure who or where. He states they also mentioned a brace but he did not get one. Dar BROWN contacted Spine and they are to call the patient for an appointment. Provided him with the phone number for them. Also suggested they follow up with PCP within a week and let them know back brace was not ordered. Denies any other questions or concerns at this time. LESLIE Moran
== END 2022-03-01 14:38 | disposition home or self-care (01) ==
LOC: ER 19:31 → 2ND 20:56
PROVIDERS: Emergency Medicine; Admitting Provider Family Medicine; Emergency Provider Emergency Medicine; PCP Internal Medicine; Visit Provider Family Medicine
DX: S22.089A Unspecified fracture of T11-T12 vertebra, initial encounter for closed fracture (principal); I48.91 Unspecified atrial fibrillation; Z79.01 Long term (current) use of anticoagulants; E11.9 Type 2 diabetes mellitus without complications; Z79.84 Long term (current) use of oral hypoglycemic drugs; I10 Essential (primary) hypertension; Z20.822 Contact with and (suspected) exposure to COVID-19
CPT/HCPCS: G0378; 36415; 70450; 71045; 71260; 72070; 72125; 72128; 72131; 72170; 74177; 80048; 85025; 99285; C9803; J2405; Q9967; U0003; U0005

== ENCOUNTER → 2022-03-09 10:28 | Outpatient (CLI) | payer MEDICARE, SELFPAY ==
--- NOTE | 2022-03-09 10:43 | ECG_ITS ---
APPROVED REPORT Exam: Resting ECG HR:86 bpm ECG Measurements Heart Rate 86 AXES [place] 148 P 45 QRSd 137 QRS 29 QT 398 T 41 QTc 441 Conclusion SINUS RHYTHM RIGHT BUNDLE BRANCH BLOCK [120+ ms QRS DURATION, UPRIGHT V1, 40+ ms S IN I/aVL/V4/V5/V6] MODERATE T-WAVE ABNORMALITY, CONSIDER LATERAL ISCHEMIA [-0.1+ mV T-WAVE IN I/aVL/V5/V6] ABNORMAL ECG UNCONFIRMED REPORT Electronically signed by : Richie Bianchi MD 03/09/2022 21:00:24
[2022-03-09 11:23] LABS: Basophils # 0.1 K/mm3 (0-0.2); Basophils % 1.1 % (0.1-2.0); Eosinophils # 0.2 K/mm3 (0.0-0.4); Eosinophils % 2.6 % (0.1-12.0); Hematocrit 42.9 % (42.0-52.0); Hemoglobin 13.3 g/dL (14.1-18.0); Lymphocytes # 1.8 K/mm3 (0.7-4.5); Lymphocytes % 22.8 % (10-50); Mean Corpuscular HGB Conc 31.1 g/dL (31.8-35.4); Mean Corpuscular Hemoglobin 29.7 pg (27.0-31.2); Mean Corpuscular Volume 95.4 fl (80-94); Monocytes # 0.8 K/mm3 (0.1-1.0); Monocytes % 9.7 % (1.7-9.3); Neutrophils # 4.9 K/mm3 (1.8-7.8); Neutrophils % 63.9 % (37.0-80.0); Platelet Count 320 K/mm3 (142-424); Red Blood Count 4.49 M/mm3 (4.60-6.20); Red Cell Distribution Width 12.8 % (11.5-17.5); White Blood Count 7.7 K/mm3 (4.8-10.8)
[2022-03-09 11:56] LABS: Chloride 100 mmol/L (98-107); Potassium 4.3 mmoL/L (3.5-5.1); Sodium 137 mmol/L (136-145)
[2022-03-09 11:59] LABS: Blood Urea Nitrogen 16 mg/dl (9-20); Estimated Glomerular Filt Rate 81 ml/min (>60); GFR (African American) 98 ML/MIN (>60)
[2022-03-09 12:00] LABS: Anion Gap 10.3 mEq/L (5-15); Calcium 9.7 mg/dl (8.4-10.2); Carbon Dioxide 31 mmol/L (22.0-30.0); Glucose 91 mg/dl (74-100)
== END ==
PROVIDERS: PCP Internal Medicine; Visit Provider Orthopaedic Surgery
DX: Z01.818 Encounter for other preprocedural examination (principal); M54.6 Pain in thoracic spine
CPT/HCPCS: 36415; 80048; 85025; 93005

== ENCOUNTER → 2022-03-29 10:34 | Outpatient (POV) | payer MEDICARE, SELFPAY | PROVIDERS: Visit Provider Dermatology | DX: Z00.00 Encounter for general adult medical examination without abnormal findings (principal) ==

== ENCOUNTER → 2022-06-07 12:17 | Outpatient (CLI) | payer MEDICARE, SELFPAY ==
[2022-06-07 16:32] LABS: Alanine Aminotransferase 19 U/L (12-78); Albumin Level 4.3 g/dl (3.5-5.0); Albumin/Globulin Ratio 1.7 (1.1-1.8); Alkaline Phosphatase 71 U/L (38-126); Anion Gap 15.7 mEq/L (5-15); Aspartate Amino Transferase 31 U/L (17-59); Bilirubin,Total 0.9 mg/dl (0.2-1.3); Blood Urea Nitrogen 17 mg/dl (9-20); Calcium 9.4 mg/dl (8.4-10.2); Carbon Dioxide 28 mmol/L (22.0-30.0); Chloride 100 mmol/L (98-107); Chol/HDL Ratio 2.6 (1-3.5); Cholesterol 146 mg/dl (140-200); Estimated Glomerular Filt Rate 92 ml/min (>60); GFR (African American) 112 ML/MIN (>60); Globulin 2.6 g/dL (1.3-3.2); Glucose 97 mg/dl (74-100); HDL Cholesterol 56 mg/dl (40-60); Potassium 4.7 mmoL/L (3.5-5.1); Sodium 139 mmol/L (136-145); Total Protein,Serum 6.9 g/dl (6.3-8.2); Triglycerides 59 mg/dl (30-150); VLDL Cholesterol 12 mg/dL (0-40)
[2022-06-07 16:43] LABS: Direct LDL Cholesterol 65.14 mg/dL (100-129)
[2022-06-07 17:35] LABS: Microalbumin/Creatinine Ratio 7.9
[2022-06-07 17:40] LABS: Creatinine,Urine Random 188 mg/dL (Not Estab.)
[2022-06-07 18:27] LABS: Hemoglobin A1C 6.2 % (4.0-6.0)
== END ==
PROVIDERS: PCP Internal Medicine; Visit Provider Internal Medicine
DX: I48.0 Paroxysmal atrial fibrillation (principal); E11.9 Type 2 diabetes mellitus without complications; E78.5 Hyperlipidemia, unspecified; I51.9 Heart disease, unspecified; Z85.820 Personal history of malignant melanoma of skin; Z79.84 Long term (current) use of oral hypoglycemic drugs
CPT/HCPCS: 80053; 80061; 82043; 82570; 83036

== ENCOUNTER → 2022-12-09 11:33 | Outpatient (CLI) | payer MEDICARE, SELFPAY ==
[2022-12-09 12:42] LABS: Basophils % 0.5 % (0.1-2.0); Eosinophils # 0.1 K/mm3 (0.0-0.4); Eosinophils % 2.3 % (0.1-12.0); Hematocrit 40.7 % (42.0-52.0); Hemoglobin 13.1 g/dL (14.1-18.0); Lymphocytes # 1.9 K/mm3 (0.7-4.5); Lymphocytes % 31.6 % (10-50); Mean Corpuscular HGB Conc 32.2 g/dL (31.8-35.4); Mean Corpuscular Hemoglobin 29.7 pg (27.0-31.2); Mean Corpuscular Volume 92.4 fl (80-94); Mean Platelet Volume 8.9 fl (7.4-10.4); Monocytes # 0.6 K/mm3 (0.1-1.0); Monocytes % 10.3 % (1.7-9.3); Neutrophils # 3.3 K/mm3 (1.8-7.8); Neutrophils % 55.3 % (37.0-80.0); Platelet Count 248 K/mm3 (142-424); Red Blood Count 4.41 M/mm3 (4.60-6.20); White Blood Count 5.9 K/mm3 (4.8-10.8)
[2022-12-09 13:25] LABS: Alanine Aminotransferase 23 U/L (12-78); Albumin Level 4.1 g/dl (3.5-5.0); Albumin/Globulin Ratio 1.3 (1.1-1.8); Alkaline Phosphatase 56 U/L (38-126); Anion Gap 16.4 mEq/L (5-15); Aspartate Amino Transferase 33 U/L (17-59); Bilirubin,Total 0.9 mg/dl (0.2-1.3); Blood Urea Nitrogen 17 mg/dl (9-20); Calcium 8.8 mg/dl (8.4-10.2); Carbon Dioxide 29 mmol/L (22.0-30.0); Chloride 97 mmol/L (98-107); Chol/HDL Ratio 1.9 (1-3.5); Cholesterol 141 mg/dl (140-200); Estimated Glomerular Filt Rate 80 ml/min (>60); GFR (African American) 97 ML/MIN (>60); Globulin 3.1 g/dL (1.3-3.2); Glucose 94 mg/dl (74-100); HDL Cholesterol 74 mg/dl (40-60); Potassium 4.4 mmoL/L (3.5-5.1); Sodium 138 mmol/L (136-145); Total Protein,Serum 7.2 g/dl (6.3-8.2); Triglycerides 58 mg/dl (30-150); VLDL Cholesterol 12 mg/dL (0-40)
[2022-12-09 13:40] LABS: Free T4 (Free Thyroxine) 0.83 ng/dl (0.78-2.19)
[2022-12-09 13:54] LABS: Prostate Specific Ag Screen 1.2 ng/ml (0.0-4.0); Thyroid Stimulating Hormone 2.04 uIU/mL (0.465-4.68)
== END ==
PROVIDERS: PCP Internal Medicine; Visit Provider Internal Medicine
DX: E11.9 Type 2 diabetes mellitus without complications (principal); E78.5 Hyperlipidemia, unspecified; I48.0 Paroxysmal atrial fibrillation; I51.9 Heart disease, unspecified; N40.1 Benign prostatic hyperplasia with lower urinary tract symptoms; Z79.84 Long term (current) use of oral hypoglycemic drugs; Z12.5 Encounter for screening for malignant neoplasm of prostate
CPT/HCPCS: 80053; 80061; 83036; 84439; 84443; 85025; G0103

== ENCOUNTER → 2023-03-07 11:11 | Outpatient (POV) | payer MEDICARE, SELFPAY | PROVIDERS: Visit Provider Dermatology | DX: Z00.00 Encounter for general adult medical examination without abnormal findings (principal) ==

== ENCOUNTER → 2023-06-19 13:28 | Outpatient (CLI) | payer MEDICARE, SELFPAY ==
--- OUTSIDE RECORDS SUMMARY | 2023-06-19 13:31 | XMS_ITS | Clinical Summary ---
Author Name Unknown Address [address] [place] [address] Phone Organization [facility] , [facility] Address [address] [place] [address] Phone Care Team Providers Care Environmental Technician Name Role Phone NIKITA BINGHAM, FAISAL Holliday Unavailable [phone] Raman BINGHAM, Rajat Unavailable [phone] Reason for Visit and Chief Complaint The Chief Complaint is: T12 fx Problems Includes: Problems addressed during this encounter and other active Problems All Visits Onset Date Resolved Date Provider Condition S tatus Pain in the Thoracic Spine 03/07/2022 Nba Richard MD Active Plan of Treatment Fall Risk Assessment: This patient has been identified as a fall risk. Balance/gait along with postural blood pressure, vision and home fall hazards have been assessed. Medications have been reviewed, and recommendations made with regard to contributing factors for future falls. Plan of care: Consideration of vitamin D supplementation along with balance and strength training with consideration for formal physical therapy has been discussed with the patient. - Last Documented On 04/09/2022 2:55PM ; [facility] Assessments Includes: Assessments from this encounter No Assessments Recorded Medical Equipment - Implanted Devices Includes: Current Devices No Medical Equipment Recorded Medications Includes: Medications discussed during this encounter and other current Medications Current Medications (continue as prescribed) HYDROcodone-Acetaminophen 5- 325 MG Oral Tablet 03/01/2022 Provider: Paco Sánchez APRN Diagnosis:
--- OUTSIDE RECORDS SUMMARY | 2023-06-19 13:31 | XMS_ITS ---
Author Name Unknown Address [address] [place] [address] [place] [address] Phone Organization [facility], [facility] Address [address] [place] [address] Phone Care Team Providers Care Customer Service Trainer Name Role Phone NIKITA BINGHAM, FAISAL Holliday Unavailable [phone] Raman BINGHAM, Rajat Unavailable [phone] Problems Includes: Active, inactive, and resolved Problems All Visits Onset Date Resolved Date Provider Condition S tatus Pain in the Thoracic Spine 03/07/2022 Nba Richard MD Active Plan of Treatment No Plan of Treatment Recorded Assessments Includes: Assessments for all patient encounters No Assessments Recorded Medical Equipment - Implanted Devices Includes: Current and historical Devices No Medical Equipment Recorded Medications Includes: Current and historical Medications Current Medications (continue as prescribed) HYDROcodone-Acetaminophen 5- 325 MG Oral Tablet 03/01/2022 Provider: Paco Sánchez APRN Diagnosis: Eliquis 5 MG Oral Tablet 02/17/2022 Provider: BENY SHELTON MD Diagnosis: Lovastatin 20 MG Oral Tablet 02/17/2022 Provider: FAISAL SHELTON MD Diagnosis: Finasteride 5 MG Oral Tablet 01/12/2022 Provider: FAISAL SHELTON
--- OUTSIDE RECORDS SUMMARY | 2023-06-19 13:31 | XMS_ITS ---
Care Plan - [facility], [facility] Created on: June 19, 2023 David Morales : 1940 Sex: Male Author Name Unknown Address [address] [place] [address] Phone Organization [facility], [facility] Address [address] [address] Phone Care Team Providers Care Wide Area Network Systems Administrator Name Role Phone NIKITA BINGHAM, FAISAL Holliday Unavailable [phone] Raman BINGHAM, Rajat Unavailable [phone]
--- OUTSIDE RECORDS SUMMARY | 2023-06-19 13:31 | XMS_ITS | Clinical Summary ---
Author Name Unknown Address [address] [place] [address] Phone Organization [facility], [facility] Address [address] [place] [address] Phone Care Team Providers Care Straightening Roll Operator Name Role Phone NIKITA BINGHAM, FAISAL Holliday Unavailable [phone] Raman BINGHAM, Rajat Unavailable [phone] Reason for Visit and Chief Complaint Kyphoplasty Problems Includes: Problems addressed during this encounter and other active Problems All Visits Onset Date Resolved Date Provider Condition S tatus Pain in the Thoracic Spine 03/07/2022 Nba Richard MD Active Plan of Treatment No Plan of Treatment Recorded Assessments Includes: Assessments from this encounter No Assessments Recorded Medical Equipment - Implanted Devices Includes: Current Devices No Medical Equipment Recorded Medications Includes: Medications discussed during this encounter and other current Medications New / Renewed during this visit Nba Richard MD on 03/14/2022 Ibuprofen 800 MG Oral Tablet Provider: bNa Richard MD 30 day supply: 40 tablet, 0 refills Diagnosis: Take 1 tablet every 8 hrs prn pain Pharmacy: [id number] - [address] [address] [place], [id number] - Current Medications (continue as prescribed) HYDROcodone-Acetaminophen 5- 325 MG Oral Tablet 03/01/2022 Provider: Paco Sánchez APRN Diagnosis:
--- OUTSIDE RECORDS SUMMARY | 2023-06-19 13:31 | XMS_ITS | Clinical Summary ---
Author Name Unknown Address [address] [place] [place] [address] Phone Organization [facility] , [facility] Address [address] [place] [place] [address] Phone Care Team Providers Care Survey Technician Name Role Phone NIKITA BINGHAM, FAISAL Holliday Unavailable [phone] Raman BINGHAM, Rajat Unavailable [phone] Reason for Visit and Chief Complaint The Chief Complaint is: T12 fx Problems Includes: Problems addressed during this encounter and other active Problems Current Visit Onset Date Resolved Date Provider Amber arreola Status Pain in the Thoracic Spine 03/07/2022 Nba [...] with the patient. - Last Documented On 07/15/2022 4:54PM ; [facility] Assessments Includes: Assessments from this encounter No Assessments Recorded Medical Equipment - Implanted Devices Includes: Current Devices No Medical Equipment Recorded Medications Includes: Medications discussed during this encounter and other current Medications Current Medications (continue as prescribed) HYDROcodone-Acetaminophen 5- 325 MG Oral Tablet 03/01/2022 Provider: Paco Sánchez APRN Diagnosis:
[2023-06-19 15:01] LABS: Hemoglobin A1C 6.2 % (4.0-6.0)
[2023-06-19 15:33] LABS: Microalbumin/Creatinine Ratio 9.3
[2023-06-19 15:37] LABS: Creatinine,Urine Random 148 mg/dL (Not Estab.)
[2023-06-19 16:08] LABS: Alanine Aminotransferase 23 U/L (12-78); Albumin Level 4.4 g/dl (3.5-5.0); Albumin/Globulin Ratio 1.6 (1.1-1.8); Alkaline Phosphatase 48 U/L (38-126); Anion Gap 13.4 mEq/L (5-15); Aspartate Amino Transferase 34 U/L (17-59); Bilirubin,Total 0.6 mg/dl (0.2-1.3); Blood Urea Nitrogen 18 mg/dl (9-20); Calcium 9.2 mg/dl (8.4-10.2); Carbon Dioxide 28 mmol/L (22.0-30.0); Chloride 102 mmol/L (98-107); Chol/HDL Ratio 2.5 (1-3.5); Cholesterol 154 mg/dl (140-200); Estimated Glomerular Filt Rate 80 ml/min (>60); GFR (African American) 97 ML/MIN (>60); Globulin 2.8 g/dL (1.3-3.2); Glucose 92 mg/dl (74-100); HDL Cholesterol 61 mg/dl (40-60); Potassium 4.4 mmoL/L (3.5-5.1); Sodium 139 mmol/L (136-145); Total Protein,Serum 7.2 g/dl (6.3-8.2); Triglycerides 52 mg/dl (30-150); VLDL Cholesterol 10 mg/dL (0-40)
[2023-06-19 16:19] LABS: Direct LDL Cholesterol 73.36 mg/dL (100-129)
== END ==
PROVIDERS: PCP Internal Medicine; Visit Provider Internal Medicine
DX: E11.9 Type 2 diabetes mellitus without complications (principal); I48.91 Unspecified atrial fibrillation; E78.5 Hyperlipidemia, unspecified; Z85.820 Personal history of malignant melanoma of skin; Z79.84 Long term (current) use of oral hypoglycemic drugs
CPT/HCPCS: 80053; 80061; 82043; 82570; 83036

== ENCOUNTER → 2023-06-27 09:19 | Outpatient (POV) | payer MEDICARE, SELFPAY | PROVIDERS: PCP Internal Medicine; Visit Provider Dermatology | DX: Z00.00 Encounter for general adult medical examination without abnormal findings (principal) ==

== ENCOUNTER 2023-11-16 10:54 | Outpatient (CLI) | payer MEDICARE, SELFPAY ==
--- NOTE | 2023-11-16 11:10 | ECG_ITS ---
APPROVED REPORT Exam: Resting ECG HR:73 bpm ECG Measurements Heart Rate 73 AXES [place] 144 P 50 QRSd 138 QRS 25 QT 439 T -25 QTc 465 Conclusion SINUS RHYTHM RIGHT BUNDLE BRANCH BLOCK [120+ ms QRS DURATION, UPRIGHT V1, 40+ ms S IN I/aVL/V4/V5/V6] ABNORMAL ECG UNCONFIRMED REPORT Electronically signed by : Richie Bianchi MD 11/19/2023 07:39:41
== END 2023-11-16 23:59 | disposition home or self-care (01) ==
LOC: RT 10:55
PROVIDERS: PCP Internal Medicine; Visit Provider Internal Medicine
DX: I48.0 Paroxysmal atrial fibrillation (principal)
CPT/HCPCS: 93005

== ENCOUNTER 2023-12-18 16:50 | Outpatient (CLI) | payer MEDICARE, SELFPAY ==
[2023-12-18 18:08] LABS: Alanine Aminotransferase 21 U/L (12-78); Albumin Level 4.3 g/dl (3.5-5.0); Albumin/Globulin Ratio 1.7 (1.1-1.8); Alkaline Phosphatase 50 U/L (38-126); Anion Gap 13.2 mEq/L (5-15); Aspartate Amino Transferase 31 U/L (17-59); Bilirubin,Total 0.8 mg/dl (0.2-1.3); Blood Urea Nitrogen 21 mg/dl (9-20); Calcium 9.4 mg/dl (8.4-10.2); Carbon Dioxide 30 mmol/L (22.0-30.0); Chloride 101 mmol/L (98-107); Chol/HDL Ratio 1.9 (1-3.5); Cholesterol 159 mg/dl (140-200); Estimated Glomerular Filt Rate 80 ml/min (>60); GFR (African American) 97 ML/MIN (>60); Globulin 2.6 g/dL (1.3-3.2); Glucose 96 mg/dl (74-100); HDL Cholesterol 82 mg/dl (40-60); Potassium 4.2 mmoL/L (3.5-5.1); Sodium 140 mmol/L (136-145); Total Protein,Serum 6.9 g/dl (6.3-8.2); Triglycerides 49 mg/dl (30-150); VLDL Cholesterol 10 mg/dL (0-40)
[2023-12-18 18:19] LABS: Direct LDL Cholesterol 75.71 mg/dL (100-129)
[2023-12-18 18:38] LABS: Prostate Specific Ag Screen 1.2 ng/ml (0.0-4.0)
[2023-12-18 21:48] LABS: Hemoglobin A1C 6.4 % (4.0-6.0)
== END 2023-12-18 23:59 | disposition home or self-care (01) ==
LOC: LAB.DROPOF 16:51
PROVIDERS: PCP Internal Medicine; Visit Provider Internal Medicine
DX: E11.9 Type 2 diabetes mellitus without complications (principal); Z12.5 Encounter for screening for malignant neoplasm of prostate; I51.9 Heart disease, unspecified; I48.0 Paroxysmal atrial fibrillation; E78.5 Hyperlipidemia, unspecified; Z85.820 Personal history of malignant melanoma of skin; Z85.828 Personal history of other malignant neoplasm of skin
CPT/HCPCS: 80053; 80061; 83036; G0103

== ENCOUNTER 2024-04-29 11:32 | Outpatient (CLI) | payer MEDICARE, SELFPAY | END 2024-04-29 23:59 | disposition home or self-care (01) | LOC: LAB.DROPOF 04-30 11:33 | PROVIDERS: PCP Internal Medicine; Visit Provider Internal Medicine | DX: J06.9 Acute upper respiratory infection, unspecified (principal); J32.9 Chronic sinusitis, unspecified; I48.0 Paroxysmal atrial fibrillation; I50.32 Chronic diastolic (congestive) heart failure | CPT/HCPCS: 87635 ==

== ENCOUNTER 2024-05-21 10:51 | Outpatient (CLI) | payer MEDICARE, SELFPAY ==
--- NOTE | 2024-05-21 10:55 | XR_ITS ---
PROCEDURE INFORMATION: Exam: XR Right Hip Exam date and time: 05/21/2024 10:56 AM Age: 83 years old Clinical indication: Hip pain; Right hip; Additional info: Right lateral hip pain, pain and trouble walking since yesterday TECHNIQUE: Imaging protocol: Radiologic exam of the right hip. Views: 2 or 3 views hip with pelvis when performed. COMPARISON: CT ABDOMEN PELVIS W CON 02/28/2022 5:33 PM FINDINGS: Bones/joints: No acute fracture. Mild marginal osteophyte formation off the lateral aspect of the right femoral head. Minimal chondrocalcinosis within the right hip joint space. Mild joint space narrowing superomedial aspect of the right hip joint space. Soft tissues: Unremarkable. IMPRESSION: 1. No evidence for acute fracture. 2. Mild marginal osteophyte formation off the lateral aspect of the right femoral head. 3. Minimal chondrocalcinosis within the right hip joint space. Mild joint space narrowing superomedial aspect of the right hip joint space.
== END 2024-05-21 23:59 | disposition home or self-care (01) ==
LOC: RAD 10:53
PROVIDERS: PCP Internal Medicine; Visit Provider Internal Medicine
DX: M25.551 Pain in right hip (principal); Z87.81 Personal history of (healed) traumatic fracture
CPT/HCPCS: 73502

== ENCOUNTER 2024-12-26 09:00 | Outpatient (CLI) | payer MEDICARE, SELFPAY ==
[2024-12-26 17:58] LABS: Basophils % 0.5 % (0.1-2.0); Eosinophils # 0.1 Kmm3 (0.0-0.4); Eosinophils % 1.6 % (0.1-12.0); Hematocrit 42.1 % (42.0-52.0); Hemoglobin 13.3 g/dL (14.1-18.0); Immature Granulocytes # 0.02 10^3uL; Immature Granulocytes % 0.3 %; Lymphocytes # 1.9 K/mm3 (0.7-4.5); Lymphocytes % 24.8 % (10-50); Mean Corpuscular HGB Conc 31.6 g/dL (31.8-35.4); Mean Corpuscular Hemoglobin 29.8 pg (27.0-31.2); Mean Corpuscular Volume 94.2 fl (80-94); Mean Platelet Volume 9.8 fl (7.4-10.4); Monocytes # 0.9 K/mm3 (0.1-1.0); Monocytes % 11.4 % (1.7-9.3); Neutrophils # 4.7 K/mm3 (1.8-7.8); Neutrophils % 61.4 % (37.0-80.0); Nucleated Red Blood Cells # 0 10^3/uL; Nucleated Red Blood Cells % 0 %; Platelet Count 247 K/mm3 (142-424); Red Blood Count 4.47 M/mm3 (4.60-6.20); Red Cell Distribution Width 13.6 % (11.5-17.5); Red Cell Distribution Width-SD 47.1 fL; White Blood Count 7.7 K/mm3 (4.8-10.8)
[2024-12-26 18:24] LABS: Albumin Level 4.5 g/dl (3.5-5.0); Chloride 103 mmol/L (98-107); Sodium 139 mmol/L (136-145)
[2024-12-26 18:25] LABS: Potassium 4.2 mmoL/L (3.5-5.1)
[2024-12-26 18:27] LABS: Alanine Aminotransferase 18 U/L (12-78); Albumin/Globulin Ratio 1.4 (1.1-1.8); Anion Gap 11.2 mEq/L (5-15); Aspartate Amino Transferase 32 U/L (17-59); Blood Urea Nitrogen 16 mg/dl (9-20); Carbon Dioxide 29 mmol/L (22.0-30.0); Estimated Glomerular Filt Rate 71 ml/min (>60); GFR (African American) 86 ML/MIN (>60); Globulin 3.3 g/dL (1.3-3.2); Total Protein,Serum 7.8 g/dl (6.3-8.2)
[2024-12-26 18:28] LABS: Alkaline Phosphatase 71 U/L (38-126); Calcium 9.5 mg/dl (8.4-10.2); Chol/HDL Ratio 2.8 (1-3.5); Cholesterol 166 mg/dl (140-200); Glucose 99 mg/dl (74-100); HDL Cholesterol 60 mg/dl (40-60); Triglycerides 66 mg/dl (30-150); VLDL Cholesterol 13 mg/dL (0-40)
[2024-12-26 18:57] LABS: Thyroid Stimulating Hormone 2.67 uIU/mL (0.465-4.68)
[2024-12-26 19:01] LABS: Microalbumin/Creatinine Ratio 23.5
[2024-12-26 19:04] LABS: Creatinine,Urine Random 233 mg/dL (Not Estab.)
[2024-12-26 19:52] LABS: Prostate Specific Ag Screen 1.7 ng/ml (0.0-4.0)
[2024-12-26 20:29] LABS: Hemoglobin A1C 6.5 % (4.0-6.0)
== END 2024-12-26 23:59 | disposition home or self-care (01) ==
LOC: LAB.DROPOF 12-27 12:50
PROVIDERS: PCP Internal Medicine; Visit Provider Internal Medicine
DX: E78.5 Hyperlipidemia, unspecified (principal); E11.42 Type 2 diabetes mellitus with diabetic polyneuropathy; N39.0 Urinary tract infection, site not specified; R63.4 Abnormal weight loss; I48.0 Paroxysmal atrial fibrillation; R82.998 Other abnormal findings in urine; I50.42 Chronic combined systolic (congestive) and diastolic (congestive) heart failure; Z12.5 Encounter for screening for malignant neoplasm of prostate
CPT/HCPCS: 80053; 80061; 82043; 82570; 83036; 84443; 85025; 87086; 87088; 87186; G0103

== ENCOUNTER 2024-12-28 10:37 | Outpatient (CLI) | payer MEDICARE, SELFPAY ==
--- NOTE | 2024-12-28 10:41 | XR_ITS ---
PROCEDURE INFORMATION: Exam: XR Lumbosacral Spine Exam date and time: 12/28/2024 10:33 AM Age: 84 years old Clinical indication: Low back pain; Additional info: Right lumbar back pain, history of melanoma TECHNIQUE: Imaging protocol: Radiologic exam of the lumbosacral spine. Views: 2 or 3 views. COMPARISON: CT LUMBAR SPINE WO CON 02/28/2022 3:59 PM FINDINGS: Bones/joints: Lumbar curvature and alignment is unremarkable. There is a chronic wedge compression fracture of T12 treated with vertebroplasty. There are no acute fractures detected. There are mild degenerative endplate changes in the upper lumbar spine and mild lower lumbar facet arthrosis. There is no spondylolisthesis. Pedicles are intact. No suspicious bone lesions detected. Soft tissues: Unremarkable. Vasculature: Abdominal aorta is diffusely calcified. No aneurysm apparent. IMPRESSION: No acute bony abnormalities.
== END 2024-12-28 23:59 | disposition home or self-care (01) ==
LOC: RAD 10:38
PROVIDERS: PCP Internal Medicine; Visit Provider Internal Medicine
DX: M54.50 Low back pain, unspecified (principal); R63.4 Abnormal weight loss; Z85.820 Personal history of malignant melanoma of skin
CPT/HCPCS: 72100

== ENCOUNTER 2025-01-08 08:23 | Outpatient (CLI) | payer MEDICARE, SELFPAY ==
--- NOTE | 2025-01-08 08:45 | CT_ITS ---
FINAL REPORT TECHNIQUE: After the administration of oral and intravenous contrast, axial images were obtained through the abdomen and pelvis by computed tomography. The study was performed with techniques to keep radiation dose as low as reasonably achievable, (ALARA). Individual dose reduction techniques using automated exposure control or adjustment of mA and/or kV according to the patient's size were employed. CLINICAL HISTORY: Abnormal weight loss, right back pain COMPARISON: 02/28/2022 FINDINGS: Abdomen: Mild scarring and fibrosis is present in the right lung base along with a calcified granuloma. The liver parenchyma is homogeneous. The gallbladder is absent. Calcified granulomas are present in the spleen. The spleen, pancreas and adrenals appear otherwise unremarkable. There is a benign-appearing cyst in the lower pole of the right kidney, the largest measuring 5 x 3.8 cm. There is aneurysmal dilatation of the abdominal aorta, measuring 3 x 2.5 cm in size, with a protuberance involving the posterior wall of the aorta, stable in appearance. 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 There are dense vascular calcifications involving the renal arteries bilaterally. There is no free fluid or adenopathy. There has been a T12 kyphoplasty performed in the interim since the prior exam. Pelvis: The appendix is not identified. The urinary bladder is incompletely distended. There is no free fluid or adenopathy. 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 When compared to the prior CT, the patient has undergone a kyphoplasty at the T12 level. Reviewed, Interpreted and Dictated by Shahriar Dixon MD Transcribed by Sindy Merritt Authenticated and . [facility]
[2025-01-08] MEDS: SODIUM CHLORIDE 0.9% 10ML SYR (RAD ONLY) 10 ML IV (08:59)
[2025-01-08] MEDS: IOPAMIDOL-370 (76%);100ML BOTTLE 75 ML IV (08:59)
[2025-01-08] MEDS: BARIUM SULFATE(READI-CAT2);450ML BOTTLE 450 ML PO (08:59)
== END 2025-01-08 23:59 | disposition home or self-care (01) ==
LOC: RAD 08:24
PROVIDERS: PCP Internal Medicine; Visit Provider Internal Medicine
DX: I71.40 Abdominal aortic aneurysm, without rupture, unspecified (principal); I77.4 Celiac artery compression syndrome; D73.9 Disease of spleen, unspecified; N32.89 Other specified disorders of bladder; J84.10 Pulmonary fibrosis, unspecified
CPT/HCPCS: 74177; Q9967

== ENCOUNTER 2025-01-09 09:50 | Outpatient (CLI) | payer MEDICARE, SELFPAY ==
--- NOTE | 2025-01-09 10:00 | CA_ITS ---
FINAL REPORT TECHNIQUE: Multiple transverse and longitudinal images were performed of the right femoral-popliteal deep venous system with augmentation and compression maneuvers. CLINICAL HISTORY: PAIN RIGHT CALF X 1 DAY,EDEMA,PT ON ELIQUIS COMPARISON: None FINDINGS: Right lower extremity duplex ultrasound demonstrates normal flow in the deep venous system. There is no abnormal echogenicity to suggest thrombus. There is normal compression and augmentation. IMPRESSION: No evidence of right DVT or SVT. Reviewed, Interpreted and Dictated by Shahriar Dixon MD Transcribed by Madalyn De Leon Authenticated and [facility]
== END 2025-01-09 23:59 | disposition home or self-care (01) ==
LOC: RT 09:51
PROVIDERS: PCP Internal Medicine; Visit Provider Internal Medicine
DX: M79.661 Pain in right lower leg (principal); R60.0 Localized edema; Z79.01 Long term (current) use of anticoagulants
CPT/HCPCS: 93971

== ENCOUNTER 2025-01-27 16:59 | Emergency (ER) | payer MEDICARE, SELFPAY ==
[2025-01-27 17:08] VITALS: BP 132/71; PULSE 70; RESP 16; TEMP 36.8; O2SAT 98; BMI 20.2
--- NOTE | 2025-01-27 17:12 | CT_ITS ---
PROCEDURE INFORMATION: Exam: CT Head Without Contrast Exam date and time: 01/27/2025 5:35 PM Age: 84 years old Clinical indication: Injury or trauma; Fall; Blunt trauma (contusions or hematomas) TECHNIQUE: Imaging protocol: Computed tomography of the head without contrast. Radiation optimization: All CT scans at this facility use at least one of these dose optimization techniques: automated exposure control; mA and/or kV adjustment per patient size (includes targeted exams where dose is matched to clinical indication); or iterative reconstruction. COMPARISON: CT HEAD/BRAIN WO CON 02/28/2022 3:53 PM FINDINGS: Brain: There is moderate diffuse cerebral volume loss present. Multiple subcortical and deep hypoattenuating white matter foci are present, likely related to small vessel senescent changes and can also be seen with prior infectious / inflammatory insult, or prior traumatic events. No hyperattenuating foci are identified to suggest acute intracranial hemorrhage. Cerebral ventricles: No ventriculomegaly. Paranasal sinuses: Visualized sinuses are unremarkable. No fluid levels. Mastoid air cells: Visualized mastoid air cells are well aerated. Bones: Unremarkable. No acute fracture. Soft tissues: Unremarkable. IMPRESSION: 1. Multiple subcortical and deep hypoattenuating white matter foci are present, likely related to small vessel senescent changes and can also be seen with prior infectious / inflammatory insult, or prior traumatic events. 2. No hyperattenuating foci are identified to suggest acute intracranial hemorrhage.
--- NOTE | 2025-01-27 17:12 | CT_ITS ---
PROCEDURE INFORMATION: Exam: CT Chest Without Contrast; Diagnostic Exam date and time: 01/27/2025 5:45 PM Age: 84 years old Clinical indication: Injury or trauma; Fall; Blunt trauma (contusions or hematomas) TECHNIQUE: Imaging protocol: Diagnostic computed tomography of the chest without contrast. Radiation optimization: All CT scans at this facility use at least one of these dose optimization techniques: automated exposure control; mA and/or kV adjustment per patient size (includes targeted exams where dose is matched to clinical indication); or iterative reconstruction. COMPARISON: CT CHEST W CON 02/28/2022 5:33 PM FINDINGS: Lungs: Pulmonary fibrotic and bronchiectatic changes most pronounced in peripheral and lower lung zones. Right lower lobar calcified nodules. Pleural spaces: Unremarkable. No pneumothorax. No pleural effusion. Heart: Unremarkable. No cardiomegaly. No pericardial effusion. Coronary arteries: Atherosclerotic calcification of coronary arteries. Lymph nodes: Right hilar calcified lymph nodes. Vasculature: Atherosclerotic calcification of aorta without aneurysm. Bones/joints: T12 vertebroplasty changes. No acute fracture. Osteopenia. Soft tissues: Unremarkable. IMPRESSION: No acute findings.
--- NOTE | 2025-01-27 17:12 | CT_ITS ---
PROCEDURE INFORMATION: Exam: CT Thoracic Spine Without Contrast Exam date and time: 01/27/2025 5:40 PM Age: 84 years old Clinical indication: Injury or trauma; Fall; Blunt trauma (contusions or hematomas) TECHNIQUE: Imaging protocol: Computed tomography of the thoracic spine without contrast. Radiation optimization: All CT scans at this facility use at least one of these dose optimization techniques: automated exposure control; mA and/or kV adjustment per patient size (includes targeted exams where dose is matched to clinical indication); or iterative reconstruction. COMPARISON: CT THORACIC SPINE WO CON 02/28/2022 5:30 PM FINDINGS: Bones/joints: No acute fracture. T12 vertebroplasty changes. Chronic vertebral body height loss. Stable alignment. Osteopenia. Soft tissues: Unremarkable. IMPRESSION: No acute findings identified.
--- NOTE | 2025-01-27 17:12 | CT_ITS ---
PROCEDURE INFORMATION: Exam: CT Lumbar Spine Without Contrast Exam date and time: 01/27/2025 5:49 PM Age: 84 years old Clinical indication: Injury or trauma; Fall; Blunt trauma (contusions or hematomas) TECHNIQUE: Imaging protocol: Computed tomography of the lumbar spine without contrast. Radiation optimization: All CT scans at this facility use at least one of these dose optimization techniques: automated exposure control; mA and/or kV adjustment per patient size (includes targeted exams where dose is matched to clinical indication); or iterative reconstruction. COMPARISON: CT LUMBAR SPINE WO CON 02/28/2022 3:59 PM FINDINGS: Bones/joints: No acute fracture. Normal alignment. Multilevel degenerative disc and joint space changes. Osteopenia. Soft tissues: Unremarkable. IMPRESSION: No acute findings identified.
--- NOTE | 2025-01-27 17:12 | CT_ITS ---
PROCEDURE INFORMATION: Exam: CT Cervical Spine Without Contrast Exam date and time: 01/27/2025 5:37 PM Age: 84 years old Clinical indication: Injury or trauma; Fall; Blunt trauma TECHNIQUE: Imaging protocol: Computed tomography of the cervical spine without contrast. Radiation optimization: All CT scans at this facility use at least one of these dose optimization techniques: automated exposure control; mA and/or kV adjustment per patient size (includes targeted exams where dose is matched to clinical indication); or iterative reconstruction. COMPARISON: CT CERVICAL SPINE WO CON 02/28/2022 3:55 PM FINDINGS: Bones: Right C3 and C4 facets are fused. Moderate loss of intervertebral disc space with degenerative changes involving C5 through C7 resulting in [id number] bilateral neural foraminal stenosis greatest at C6-C7. The vertebral bodies are maintained in height and alignment. No evidence of acute osseous abnormality. Lungs: Lung apices are normal. Soft tissues: Unremarkable. IMPRESSION: No evidence of acute osseous abnormality.
--- NOTE | 2025-01-27 17:16 | HMH.EDGENADL ---
Discharge Plan Disposition Patient Disposition: Home, Self-Care Prescriptions Prescriptions: No Action metoprolol tartrate 25 mg tablet 25 mg PO ONCE valacyclovir 500 mg tablet 500 mg PO BID PRN Rx Instructions: For fever blisters lovastatin 20 mg tablet 20 mg PO HS Qty: 90 1RF finasteride 5 mg tablet See Rx Instructions .ROUTE .COMPLEX Qty: 90 1RF Dose Instruction: TAKE 1 TABLET BY MOUTH EVERY DAY Rx Instructions: TAKE 1 TABLET BY MOUTH EVERY DAY metformin 500 mg tablet See Rx Instructions .ROUTE .COMPLEX Qty: 180 1RF Dose Instruction: TAKE 1 TABLET BY MOUTH TWICE DAILY WITH MEALS Rx Instructions: TAKE 1 TABLET BY MOUTH TWICE DAILY WITH MEALS apixaban 5 mg tablet 5 mg PO BID Qty: 180 1RF Referrals Follow up/Referrals: Daren Bloom MD [Primary Care Provider, Medical] - See instructions Activity Restrictions/Add. Instructions Additional Instructions/Restrictions: Follow-up with primary care provider regarding this visit to the emergency department within 7 days to establish care and ensure no worsening of symptoms. If you have any worsening of your condition or any other concerning signs or symptoms, return to the emergency department or your primary care doctor for further evaluation. Clinical Impressions Clinical Impression: Fall, Acute chest wall pain Print Language Print Language: Slovenian Discharge ED Provider: Jaziel Hough General Adult HPI <Fara Fraire (ED), DIRECTOR OF CLINICAL TRIALS - Last Filed: 01/27/25 18:59> General Chief complaint: Fall Stated complaint: AO 01/27/25 1620 Injury lower back,right rib cage Time Seen by Provider: 01/27/25 17:07 Mode of Arrival: Ambulatory Source of Information: Patient Description of Symptoms (Recalled from ER Triage Doc. 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 PT stated it was raining and he slipped on metal ramp. PT denies LOC. Takes Eliquis. Denies hitting head. PT has abrasion R flank and mid back. Pain rated 4/10. History of Present Illness HPI narrative: 84-year-old male presents to the ED today after falling back onto a metal lift injuring his low back and right lower ribs. He has scrapes on both areas. He was trying to put away his lawnmower and was trying to put the lifts up and slipped due to the rain and fell backwards. He denies hitting his head. He is on Eliquis however for A-fib. Related Data Home Medications ?Medication ?Instructions ?Recorded ?Confirmed metoprolol tartrate 25 mg tablet 25 mg PO ONCE 08/28/24 01/09/25 valacyclovir 500 mg tablet 500 mg PO BID PRN 01/09/25 01/09/25 Previous Rx's ?Medication ?Instructions ?Recorded lovastatin 20 mg tablet 20 mg PO HS Cholesterol #90 tabs 05/01/24 finasteride 5 mg tablet See Rx Instructions .Route 10/30/24 .COMPLEX #90 tabs metformin 500 mg tablet See Rx Instructions .Route 11/19/24 .COMPLEX #180 tabs apixaban 5 mg tablet 5 mg PO BID Blood thinner #180 tabs 12/16/24 Allergies Allergy/AdvReac Type Severity Reaction Status Date / Time No Known Allergies Allergy Verified 01/09/25 09:19 [facility] <Fara Fraire (ED), DIRECTOR OF CLINICAL TRIALS - Last Filed: 01/27/25 18:59> [facility] Disclaimer: The information contained in this section may have been updated after the patient was seen, as this information can be updated by other users. Social History Smoking Status: Never smoker alcohol intake: former current occupational status: retired Travel in the last 8 weeks?: None household members: spouse Have you lived/traveled outside [place] in past 30 days?: No Contact w/someone who lives/traveled outside US past 30 days?: No Exposure to someone with infectious disease in past 14 days?: No Do you have a fever (greater than 100.4 F or 38 C)?: No Have you tested positive for COVID-19?: No Exposed to someone with COVID-19 in past 14 days?: No Do you have a sore throat?: No Do you have a cough?: No Do you have any weakness?: No Do you have any diarrhea?: No Are you experiencing any unusual bleeding?: No Do you have any muscle aches/pain?: No Do you have any abdominal pain?: No Are you experiencing loss of taste or smell?: No Other Medical History Have you received the Flu Vaccine for this season: No Have you received the Pneumonia Vaccine: Yes <Fara Fraire (ED), DIRECTOR OF CLINICAL TRIALS - Last Filed: 01/27/25 18:59> ROS Obtained: Yes Systems reviewed as appropriate & no additional complaints except as documented Constitutional Constitutional: Reports as per HPI Physical Exam <Fara Fraire (ED), DIRECTOR OF CLINICAL TRIALS - Last Filed: 01/27/25 18:59> General General appearance: alert and in no apparent distress Head Head exam: atraumatic and normocephalic Eye Eye exam: Present PERRL and EOMI ENT ENT exam: Present normal oropharynx and mucous membranes moist Neck Neck exam: Present full ROM and trachea midline Respiratory Respiratory exam: Present normal lung sounds bilaterally Cardiovascular Cardiovascular exam: Present regular rate, normal rhythm, normal heart sounds, +S1 and +S2 Abdominal Exam Abdominal exam: Present soft and normal bowel sounds Extremities Exam Extremities exam: Present normal inspection, full ROM and normal capillary refill Back Exam Back exam: Present tenderness and vertebral tenderness Neurological Exam Neurological exam: Present alert, oriented X3 and normal gait Skin Skin exam: Present warm, dry and erythema (Small area on his low spine that is open, scraped and small area on right side that is a braised) Medical Decision Making <Fara Fraire (ED), DIRECTOR OF CLINICAL TRIALS - Last Filed: 01/27/25 18:59> Medical Records Medical records reviewed: Yes I reviewed the patient's medical records. Screening: Per USPSTF and CDC recommendations, given the prevalence of disease in our region, it is our hospital?s policy to screen for HIV and viral Hepatitis for all patients aged 18 and over and those with ongoing risk factors. Jagdish Inquiry Pt receiving controlled substance: No Vital Signs: 01/27/25 17:08 01/27/25 18:14 01/27/25 18:30 Temperature 98.3 F Temperature Source Oral Pulse Rate 70 70 Pulse Rate [Left] 70 Respiratory Rate 16 Blood Pressure 129/85 129/77 Blood Pressure [Left Arm] 132/71 Blood Pressure Mean [Left Arm] 91 02 Sat by Pulse Oximetry 98 98 98 Oxygen Delivery Method Room Air 01/27/25 18:45 Temperature Temperature Source Pulse Rate 60 Pulse Rate [Left] Respiratory Rate Blood Pressure Blood Pressure [Left Arm] Blood Pressure Mean [Left Arm] 02 Sat by Pulse Oximetry 99 Oxygen Delivery Method Orders (Tests/Meds): ED MEDICATIONS Discontinued Medications Generic Name Dose Route Start Last Admin Trade Name Aby PRN Reason Stop Dose Admin Acetaminophen 1,000 mg 01/27/25 17:17 01/27/25 17:29 Acetaminophen 500mg Tab PO 01/27/25 17:18 1,000 mg ONCE ONE Administration Tetanus/Diphtheria Toxoids 0.5 ml 01/27/25 17:14 01/27/25 17:32 Tetanus-Diphth Toxoid, Adult 0.5ml Syr IM 01/27/25 17:15 Not Given .ONCE ONE Tetanus/Reduced Diphtheria/Acell Pertussis 0.5 ml 01/27/25 17:32 01/27/25 17:33 Tet/Diphth/Pert-Adult 0.5ml Syringe IM 01/27/25 17:33 0.5 ml .ONCE ONE Administration ORDERS Category Date Time Status CT cervical spine wo con Stat Cat Scan 01/27/25 17:[address] chest wo con Stat Cat Scan 01/27/25 17:[address] head/brain wo con Stat Cat Scan 01/27/25 17:[address] lumbar spine wo con Stat Cat Scan 01/27/25 17:[address] thoracic spine wo con Stat Cat Scan 01/27/25 17:12 Taken Medical Decision Narrative: patient is a 84-year-old male presenting to the emergency department for evaluation of a fall. He was putting his mower back in his building and slipped falling on to his back onto a metal lift. He has abrasions on his spine and 1 on his right flank below his right ribs. He has pain in his right ribs and back. He is on Eliquis. Patient is hemodynamically stable and nontoxic-appearing upon arrival, afebrile. Differential diagnosis includes fractures, bleed, hemorrhage among others. Workup will be conducted with specific imaging including CT of head, neck, thoracic and lumbar spines. Discussed with Dr. Hough and he wanted CTA angio of abdomen and pelvis as well. Patient is unsure if he wants contrast so we are discussing that at this time. Patient discussed that he did not want contrast. He also does not want an open contrasted study on his abdomen and pelvis. We are still awaiting CT scan results. I am giving Dr. Hough report on patient he will take over care. <Jaziel Hough MD - Last Filed: 01/27/25 19:34> Vital Signs: 01/27/25 17:08 01/27/25 18:14 01/27/25 18:30 Temperature 98.3 F Temperature Source Oral Pulse Rate 70 70 Pulse Rate [Left] 70 Respiratory Rate 16 Blood Pressure 129/85 129/77 Blood Pressure [Left Arm] 132/71 Blood Pressure Mean [Left Arm] 91 02 Sat by Pulse Oximetry 98 98 98 Oxygen Delivery Method Room Air 01/27/25 18:45 Temperature Temperature Source Pulse Rate 60 Pulse Rate [Left] Respiratory Rate Blood Pressure Blood Pressure [Left Arm] Blood Pressure Mean [Left Arm] 02 Sat by Pulse Oximetry 99 Oxygen Delivery Method Orders (Tests/Meds): ED MEDICATIONS Discontinued Medications Generic Name Dose Route Start Last Admin Trade Name Freq PRN Reason Stop Dose Admin Acetaminophen 1,000 mg 01/27/25 17:17 01/27/25 17:29 Acetaminophen 500mg Tab PO 01/27/25 17:18 1,000 mg ONCE ONE Administration Tetanus/Diphtheria Toxoids 0.5 ml 01/27/25 17:14 01/27/25 17:32 Tetanus-Diphth Toxoid, Adult 0.5ml Syr IM 01/27/25 17:15 Not Given .ONCE ONE Tetanus/Reduced Diphtheria/Acell Pertussis 0.5 ml 01/27/25 17:32 01/27/25 17:33 Tet/Diphth/Pert-Adult 0.5ml Syringe IM 01/27/25 17:33 0.5 ml .ONCE ONE Administration ORDERS Category Date Time Status CT cervical spine wo con Stat Cat Scan 01/27/25 17:[address] chest wo con Stat Cat Scan 01/27/25 17:[address] head/brain wo con Stat Cat Scan 01/27/25 17:[address] lumbar spine wo con Stat Cat Scan 01/27/25 17:[address] thoracic spine wo con Stat Cat Scan 01/27/25 17:12 Taken Medical Decision Narrative: patient is a 84-year-old male presenting to the emergency department for evaluation of a fall. He was putting his mower back in his building and slipped falling on to his back onto a metal lift. He has abrasions on his spine and 1 on his right flank below his right ribs. He has pain in his right ribs and back. He is on Eliquis. Patient is hemodynamically stable and nontoxic-appearing upon arrival, afebrile. Differential diagnosis includes fractures, bleed, hemorrhage among others. Workup will be conducted with specific imaging including CT of head, neck, thoracic and lumbar spines. Discussed with Dr. Hough and he wanted CTA angio of abdomen and pelvis as well. Patient is unsure if he wants contrast so we are discussing that at this time. Patient discussed that he did not want contrast. He also does not want an open contrasted study on his abdomen and pelvis. We are still awaiting CT scan results. I am giving Dr. Hough report on patient he will take over care. I was consulted by the LETI, and we discussed the complexity of the problems being addressed. I approved the treatment and management plan for this patient's care in the Emergency Department, thus performing a substantive portion of the medical decision making. On independent interpretation of patient's imaging, no intracranial hemorrhage, no obvious cervical spine, thoracic or lumbar spine injuries. Old old thoracic kyphoplasties, no acute injury. No pneumothorax or pulmonary contusion, no evidence of rib fracture. Patient declining CT of the abdomen and pelvis, which is where he has flank hematomas because he had contrast recently and does not want to have anymore. Discussed with patient the importance of imaging in this area given the bruising. He is even declining CT noncontrasted scans at this point. To be discharged in hemodynamically stable condition because patient has been nontachycardic, normotensive, no worsening pain, no changes from baseline. I feel incredibly unlikely to have any kind of acute hemorrhage especially when able to visualize most of the flank on the CT thoracic and lumbar spine with no acute bleed. Because patient at baseline without signs or symptoms of clinical decompensation, deemed appropriate for discharge. Results were relayed to patient who voiced understanding and were agreeable to outpatient management and follow up. I discussed my clinical impression with patient and answered all questions. At this time, the evidence for any other entities in the differential is insufficient to warrant any further testing or ED observation. This was explained as well. Advisory was given that persistent or worsening symptoms require further evaluation. I confirmed the understanding of this discussion. Jaziel Hough MD Critical Care <Fara Fraire (ED), DIRECTOR OF CLINICAL TRIALS - Last Filed: 01/27/25 18:59> Critical Care Time Critical Care Time: No
[2025-01-27] MEDS: ACETAMINOPHEN 500MG TAB 1000 MG PO (17:29)
[2025-01-27] MEDS: TET/DIPHTH/PERT-ADULT 0.5ML SYRINGE 0.5 ML IM (17:33)
--- NOTE | 2025-01-27 17:56 | PC.NURSE ---
RAD call stating that pt was unsure that he wanted to get the IV contrast and has been sent back to the room. Fara klein. Pt also placed in bed 8 from Chair 12
[2025-01-27 18:14] VITALS: BP 129/85; PULSE 70; O2SAT 98
[2025-01-27 18:30] VITALS: BP 129/77; PULSE 70; O2SAT 98
[2025-01-27 18:45] VITALS: PULSE 60; O2SAT 99
[2025-01-27 19:48] VITALS: BP 129/77; PULSE 70; RESP 16; TEMP 36.9; O2SAT 98
== END 2025-01-27 19:49 | disposition home or self-care (01) ==
PROVIDERS: Emergency Provider Emergency Medicine; PCP Internal Medicine
DX: R07.89 Other chest pain (principal); Z86.79 Personal history of other diseases of the circulatory system; Z79.01 Long term (current) use of anticoagulants; W01.10XA Fall on same level from slipping, tripping and stumbling with subsequent striking against unspecified object, initial encounter
CPT/HCPCS: 70450; 71250; 72125; 72128; 72131; 90471; 90715; 99285